=== PATIENT | male | born 1960 | race American Indian/Alaskan Native ===

== ENCOUNTER 2017-01-17 10:48 | Emergency (ER) | payer BC, OTHER ==
[2017-01-17 11:53] LABS: Basophils % (Auto) 0.5 % (0.0-1.8); Eosinophils % (Auto) 0.3 % (0.0-4.3); Hematocrit 32.4 % (35.5-45.6); Hemoglobin 10.3 gm/dl (11.8-15.2); Mean Corpuscular HGB Conc 32 % (32-34); Platelet Count 342 K/mm3 (140-440); Red Blood Count 4.66 M/mm3 (3.65-5.03); Red Cell Distribution Width 17.3 % (13.2-15.2); White Blood Count 7.9 K/mm3 (4.5-11.0)
[2017-01-17 12:01] LABS: Mean Corpuscular Hemoglobin 22 pg (28-32); Mean Corpuscular Volume 70 fl (84-94)
[2017-01-17 12:09] LABS: Anion Gap 17 mmol/L; BUN/Creatinine Ratio 11.11; Blood Urea Nitrogen 10 mg/dL (9-20); Calcium 9.4 mg/dL (8.4-10.2); Carbon Dioxide 24 mmol/L (22-30); Chloride 105.5 mmol/L (98-107); Glucose 85 mg/dL (75-100); Potassium 3.7 mmol/L (3.6-5.0); Sodium 143 mmol/L (137-145)
[2017-01-17 12:12] LABS: Creatine Kinase MB 3.3 ng/mL (0.0-4.0)
--- NOTE | 2017-01-17 13:31 | XRay Report ---
CHEST 2 VIEWS INDICATION: Chest pain. COMPARISON: None similar. FINDINGS: PA and lateral chest radiographs demonstrate stable cardiomediastinal silhouette. Lung markings slightly prominent centrally. No pleural effusions or CHF. Unremarkable bones. CONCLUSION: No significant interval change, as described. Thank you for the opportunity to participate in this patient's care.
[2017-01-17 15:26] VITALS: BP 127/84
[2017-01-17] MEDS ORDERED: NORCO 5/325 PO ONE (16:36)
[2017-01-17] MEDS ORDERED: PEPCID PO ONE (16:36)
--- NOTE | 2017-01-17 16:53 | Emergency Department Report ---
HPI - General Chief Complaint: Chest Pain Time Seen by Provider: 01/17/17 16:14 - HPI HPI: Patient is a 56-year-old male who presents for evaluation of chest pain. The patient reports chest pain on-and-off for the past 10 days, burning in quality, 8/10 in severity, exacerbated with eating and lying down, and improved with sitting forWARD. The patient denies fever, neck pain, parasthesias, dyspnea, cough, hemoptysis, palpitations, dizziness, syncope, unilateral leg swelling, calf muscle pain. Patient also denies cocaine or other stimulant use, history of DVT or PE, recent immobilization, or history of cancer. 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" - Surgical History Additional Surgical History: Finger surgery on right hand, Lung surgery for collapsed lung, Brain Surgery - Social History Smoking Status: Never Smoker Substance Use Type: None - Medications Home Medications: Home Medications Medication Instructions Recorded Confirmed Last Taken Type Tamsulosin [Flomax] 0.4 mg PO DAILY 03/26/15 01/17/17 01/04/16 History amLODIPine [Norvasc] 10 mg PO DAILY #30 tablet 11/26/15 01/17/17 01/04/16 Rx Cyclobenzaprine HCl [Flexeril 5 MG 5 mg PO Q8HR PRN #15 tab 01/17/17 Unknown Rx TAB] Famotidine [Pepcid] 20 mg PO BID #30 tablet 01/17/17 Unknown Rx Omeprazole Magnesium [PriLOSEC Otc] 20 mg PO QDAY #14 tablet. 01/17/17 Unknown Rx ED Review of Systems ROS: Stated complaint: REFERRAL HEART PAIN Other details as noted in HPI Constitutional: denies: fever ENT: denies: throat or neck pain Respiratory: denies: cough, shortness of breath Cardiovascular: reports chest pain Endocrine: denies unexplained weight loss or gain Gastrointestinal: denies: abdominal pain, nausea Genitourinary: denies: dysuria Musculoskeletal: denies: leg swelling Skin: denies: rash Neurological: denies: headache Hematological/Lymphatic: denies: easy bleeding or easy bruising Psych: denies sadness or hopelessness Physical Exam - Physical Exam Vital Signs: Vital Signs 01/17/17 01/17/17 11:24 15:25 Temperature 98.0 F Pulse Rate 93 H 76 Respiratory 20 16 Rate Blood Pressure 109/73 Blood Pressure 127/84 [Left] O2 Sat by Pulse 99 95 Oximetry Physical Exam: General: well-nourished, well-developed, no acute distress Head: Normocephalic, atraumatic Eyes: normal sclera ENT: Mucous membranes are pink and moist Neck: trachea midline, neck supple, No neck stiffness, no cervical adenopathy Respiratory: Breath sounds equal bilaterally, no wheezing, rales, or rhonchi Cardio: S1 and S2 present, no murmurs, rubs, gallops, capillary refill is brisk Abdomen: Normoactive bowel sounds, soft abdomen, no rigidity, no guarding or rebound tenderness Chest WALL/Back: No tenderness to palpation of the chest wall, no CVA tenderness with percussion Musc: No pitting edema Skin: No rash Neuro: no facial drooping, normal speech Psych: Normal affect ED Course Vital Signs 01/17/17 01/17/17 11:24 15:25 Temperature 98.0 F Pulse Rate 93 H 76 Respiratory 20 16 Rate Blood Pressure 109/73 Blood Pressure 127/84 [Left] O2 Sat by Pulse 99 95 Oximetry ED Medical Decision Making - Lab Data Result diagrams: 01/17/17 11:39 01/17/17 11:39 - Medical Decision Making The patient was seen and examined by myself. The patient is placed on a pattern painter and continuous pulse ox. On initial evaluation, the patient was found to be in no distress. EKG was negative for findings suggestive of acute cardiac infarct. The patient is given Pepcid and a tablet of Gilbert for his pain. Labs and imaging are obtained. Chest x-ray is negative for pneumothorax, focal consolidation, pulmonary vascular congestion, pleural effusion, or other obvious acute cardiopulmonary disease process. Lab results were non-concerning including levels of troponin, WBC, hemoglobin, hematocrit, electrolytes, renal function. The patient was reevaluated and reported that their symptoms were markedly improved. As the patient has a SHERMAN risk score less than 2, and a well 's score less than 2, the patient is at low risk of ACS or pulmonary emboli etiology of their symptoms. The patient is stable for discharge with outpatient follow-up. The patient is given follow-up and return instructions. The patient expressed understanding and agreed with the plan. The patient is discharged in stable condition. Critical care attestation.: If time is entered above; I have spent that time in minutes in the direct care of this critically ill patient, excluding procedure time. ED Disposition Clinical Impression: Acute chest pain Disposition: DISCHARGED TO HOME OR SELFCARE Is pt being admited?: No Does the pt Need Aspirin: No Condition: Stable Instructions: Chest Pain (ED) Prescriptions: Cyclobenzaprine HCl [Flexeril 5 MG TAB] 5 mg PO Q8HR PRN #15 tab PRN Reason: Pain Famotidine [Pepcid] 20 mg PO BID #30 tablet Omeprazole Magnesium [PriLOSEC Otc] 20 mg PO QDAY #14 tablet. Referrals: CLARISSA CHINCHILLA [Other] - 3-5 Days Time of Disposition: 16:37
== END 2017-01-17 17:23 | disposition home or self-care (01) ==
LOC: ED 10:48
DX: R07.9 Chest pain, unspecified (principal); I10 Essential (primary) hypertension; M19.90 Unspecified osteoarthritis, unspecified site; J44.9 Chronic obstructive pulmonary disease, unspecified; F41.9 Anxiety disorder, unspecified
CPT/HCPCS: 36415; 71020; 80048; 82550; 82553; 84484; 85025; 93005; 93010; 99285

== ENCOUNTER 2018-02-20 10:14 | Emergency (ER) | payer MEDICAID, OTHER ==
--- NOTE | 2018-02-20 12:24 | Emergency Department Report ---
HPI - General Chief Complaint: Upper Respiratory Infection Time Seen by Provider: 02/20/18 12:17 - HPI HPI: 57-year-old male presents to the emergency department with a complaint of sinus pressure, sinus drainage, sore throat. He also complains of a history of acid reflux that he says is unresponsive to his omeprazole. 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 He tried some Flonase [id number] without much relief. He denies any fever, headache, nausea, vomiting, chest pain or shortness of breath. He has a past medical history of COPD, hypertension. He denies any recent travel or sick contacts at home. 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 10/21/17 Unknown Rx amLODIPine [Norvasc] 10 mg PO DAILY tablet 10/21/17 Unknown Rx Azithromycin [Zithromax Z-NIXON] 250 mg PO DAILY #6 tab 02/20/18 Unknown Rx ED Review of Systems ROS: Stated complaint: COLD Other details as noted in HPI Comment: All other systems reviewed and negative Constitutional: denies: chills, fever Eyes: denies: eye pain, eye discharge, vision change ENT: throat pain, congestion. denies: ear pain Respiratory: cough. denies: shortness of breath Cardiovascular: denies: chest pain, palpitations Gastrointestinal: denies: abdominal pain, nausea, diarrhea Genitourinary: denies: urgency, dysuria Musculoskeletal: denies: back pain, joint swelling, arthralgia Skin: denies: rash, lesions Neurological: denies: headache, weakness, paresthesias Physical Exam - Physical Exam Vital Signs: Vital Signs 02/20/18 10:25 Temperature 98.4 F Pulse Rate 106 H Respiratory 18 Rate Blood Pressure 127/82 O2 Sat by Pulse 97 Oximetry Physical Exam: GENERAL: The patient is well-developed well-nourished. HENT: Normocephalic. Atraumatic. Patient has moist mucous membranes. Posterior pharynx has a cobblestoning appearance consistent with some postnasal drip. No tonsillar hypertrophy, erythema or exudates. No drooling or trismus. Bilateral boggy nasal mucosa with some nasal congestion apparent. EYES: Extraocular motions are intact. Pupils equal reactive to light bilaterally. NECK: Supple. Trachea is midline. CHEST/LUNGS: Clear to auscultation. There is no respiratory distress noted. HEART/CARDIOVASCULAR: Regular. There is no tachycardia. There is no murmur. ABDOMEN: Abdomen is soft, nontender. Patient has normal bowel sounds. There is no abdominal distention. SKIN: Skin is warm and dry. NEURO: The patient is awake, alert, and oriented. The patient is cooperative. The patient has no focal neurologic deficits. The patient has normal speech. MUSCULOSKELETAL: There is no tenderness or deformity. There is no limitation range of motion. There is no evidence of acute injury. ED Course Vital Signs 02/20/18 10:25 Temperature 98.4 F Pulse Rate 106 H Respiratory 18 Rate Blood Pressure 127/82 O2 Sat by Pulse 97 Oximetry ED Medical Decision Making - Medical Decision Making The patient has already tried some [id number] medications including some Flonase. He has complaints of some sinus pressure and drainage, sore throat, cough. Vital signs stable including being afebrile. He has been encouraged to stay on the Flonase but I have added a Z-Nixon. We also discussed dietary changes to help with his GERD. He'll need to follow up with his mount loader as well. He will return to the ER with any worsening of his symptoms or any acute distress. - Differential Diagnosis sinusitis, viral URI, GERD, gastritis Critical Care Time: No Critical care attestation.: If time is entered above; I have spent that time in minutes in the direct care of this critically ill patient, excluding procedure time. ED Disposition Clinical Impression: History of gastroesophageal reflux (GERD) Sinusitis Qualifiers: Sinusitis location: unspecified location Chronicity: unspecified Qualified Code (s): J32.9 - Chronic sinusitis, unspecified Disposition: TO HOME OR SELFCARE Is pt being admited?: No Condition: Stable Instructions: Sinusitis (ED) Additional Instructions: Please follow up with a primary care physician in the next 2 days. Return to the emergency Department with any worsening of her symptoms or any acute distress. Prescriptions: Azithromycin [Zithromax Z-NIXON] 250 mg PO DAILY #6 tab Referrals: PRIMARY CARE, [Primary Care Provider] - 3-5 Days MYESHA LANG MD [Staff Physician] - 3-5 Days [facility] [Outside] - 3-5 Days Time of Disposition: 12:24
[2018-02-20 12:35] VITALS: BP 114/74
== END 2018-02-20 12:34 | disposition home or self-care (01) ==
LOC: ED 10:14
DX: J32.9 Chronic sinusitis, unspecified (principal); K21.9 Gastro-esophageal reflux disease without esophagitis; I10 Essential (primary) hypertension; M19.90 Unspecified osteoarthritis, unspecified site; J44.9 Chronic obstructive pulmonary disease, unspecified; Z87.891 Personal history of nicotine dependence
CPT/HCPCS: 99282

== ENCOUNTER 2018-03-24 09:07 | Outpatient (CLI) | payer MEDICAID ==
--- NOTE | 2018-03-24 10:47 | Fluoroscopy Report ---
UPPER GI AIR CONTRAST: History: Gastroesophageal reflux disease. FINDINGS: 16 fluoroscopic images were captured during this exam. The patient ingested barium without difficulty. The esophageal contour is normal. There are no ulcerations or filling defects seen in the esophagus. There is normal esophageal motility. There is no hiatal hernia or reflux. The gastric contour and position appear normal. There are no ulcerations or filling defects in the stomach. The duodenal bulb and duodenal sweep appear normal. IMPRESSION: Negative double contrast upper GI examination.
== END 2018-03-24 09:08 | disposition home or self-care (01) ==
LOC: FLUORO 09:07
DX: K21.9 Gastro-esophageal reflux disease without esophagitis (principal); I10 Essential (primary) hypertension; J44.9 Chronic obstructive pulmonary disease, unspecified; M19.90 Unspecified osteoarthritis, unspecified site; F41.9 Anxiety disorder, unspecified; Z91.81 History of falling; Z87.891 Personal history of nicotine dependence
CPT/HCPCS: 74247

== ENCOUNTER 2018-04-08 07:29 | Outpatient (CLI) | payer MEDICAID ==
--- NOTE | 2018-04-08 10:25 | Nuclear Medicine Report ---
Gastric emptying scan: GERD Following ingestion of technetium 99m tagged sulfur colloid in oatmeal this patient demonstrated a one half gastric emptying time of 25 minutes which is well within lower normal limits of 90 minutes. Impression: Normal exam.
== END 2018-04-08 07:30 | disposition home or self-care (01) ==
LOC: NM 07:29
DX: K21.9 Gastro-esophageal reflux disease without esophagitis (principal); I10 Essential (primary) hypertension; J44.9 Chronic obstructive pulmonary disease, unspecified; M19.90 Unspecified osteoarthritis, unspecified site; F41.9 Anxiety disorder, unspecified; Z91.81 History of falling; Z87.891 Personal history of nicotine dependence
CPT/HCPCS: 78264; A9541

== ENCOUNTER 2019-05-18 06:43 | Outpatient (CLI) | payer MEDICAID ==
[2019-05-18 07:19] LABS: Hematocrit 31.4 % (35.5-45.6); Mean Corpuscular HGB Conc 32 % (32-34); Platelet Count 254 K/mm3 (140-440); Red Blood Count 4.49 M/mm3 (3.65-5.03); Red Cell Distribution Width 17.7 % (13.2-15.2)
[2019-05-18 07:28] LABS: Mean Corpuscular Volume 70 fl (84-94)
[2019-05-18 07:41] LABS: Alanine Aminotransferase 11 units/L (7-56); Albumin 3.9 g/dL (3.9-5); BUN/Creatinine Ratio 11; Blood Urea Nitrogen 10 mg/dL (9-20); Calcium 9.3 mg/dL (8.4-10.2); Chol/HDL Ratio 1.83 %; HDL Cholesterol 54 mg/dL (40-59); Hemolysis Index 0; LDL Cholesterol,Direct 46 mg/dL (50-130)
--- NOTE | 2019-05-18 08:00 | XRay Report ---
CHEST 2 VIEWS INDICATION: COPD. COMPARISON: 10/19/2017 report FINDINGS: Support devices: None. Heart: Borderline heart size Lungs/pleura: The lungs are mildly hyperinflated. No acute air space or interstitial disease. No pne umothorax. Additional findings: None. IMPRESSION: Mild hyperinflation. Borderline cardiomegaly. Signer Name: Gopal Mari Jr, MD Signed: 05/18/2019 7:56 AM Workstation Name: [id number]
--- NOTE | 2019-05-18 08:33 | Cat Scan Report ---
CT CHEST WITH CONTRAST INDICATION / CLINICAL INFORMATION: COPD, shortness of breath. TECHNIQUE: Axial CT images were obtained through the chest after 100 cc of Omnipaque 300 IV contrast. Sagittal a nd coronal reformatted images. All CT scans at this location are performed using CT dose reduction fo r ALARA by means of automated exposure control. COMPARISON: Chest x-ray dated 05/18/2019 FINDINGS: HEART: Mild cardiomegaly is present. A small to medium pericardial effusion is identified measuring u p to 1.3 cm in thickness along the left cardiac border. No pericardial calcifications or nodularity i s identified. THORACIC AORTA: No significant abnormality. MEDIASTINUM and JEFF: Small calcified right hilar lymph nodes are noted. No pathologic adenopathy LUNGS: Mild centrilobular emphysematous changes are identified. Minor linear scarring and calcified g ranulomas near the right apex. No evidence for suspicious nodule, infiltrate or interstitial lung dis ease PLEURA: No significant pleural effusion. No pneumothorax. SKELETAL SYSTEM: No significant abnormality. UPPER ABDOMEN: No significant abnormality. ADDITIONAL FINDINGS: None. IMPRESSION: Mild emphysematous changes. Mild cardiomegaly. Small to medium pericardial effusion. Chronic granulomatous disease Signer Name: Gopal Mari Jr, MD Signed: 05/18/2019 8:28 AM Workstation Name: [id number]
== END 2019-05-18 06:44 | disposition home or self-care (01) ==
LOC: CT 06:43
PROVIDERS: ATTEND Internal Medicine
DX: J43.9 Emphysema, unspecified (principal); K21.9 Gastro-esophageal reflux disease without esophagitis; L92.9 Granulomatous disorder of the skin and subcutaneous tissue, unspecified; I11.9 Hypertensive heart disease without heart failure; J30.89 Other allergic rhinitis; Z87.891 Personal history of nicotine dependence
CPT/HCPCS: 71046; 71260; 80053; 80061; 82785; 82803; 84436; 84443; 85027; 86038; 86618; Q9967

== ENCOUNTER 2019-05-25 09:43 | Outpatient (CLI) | payer MEDICAID ==
--- NOTE | 2019-05-25 11:47 | Magnetic Resonance Report ---
MRI CERVICAL SPINE WITHOUT CONTRAST INDICATION / CLINICAL INFORMATION: Cervicalgia. TECHNIQUE: Multisequence, multiplanar images of the cervical spine were obtained. COMPARISON: None available. FINDINGS: CRANIOCERVICAL JUNCTION:No significant abnormality. ALIGNMENT: No significant abnormality. VERTEBRAE:Normal marrow signal and vertebral body height for age. VISUALIZED SPINAL CORD: No cord signal abnormality. [id number] ANALYSIS: C2-3: No significant disc abnormality, spinal canal stenosis, or neural foraminal stenosis. Mild bila teral facet DJD. C3-4: No significant disc abnormality, spinal canal stenosis, or neural foraminal stenosis. C4-5: Trace broad-based disc protrusion causing mild canal stenosis without cord impingement. Mild le ft neural foraminal narrowing secondary to uncovertebral DJD. C5-6: Trace broad-based disc protrusion causing mild canal stenosis without any cord impingement. Mil d bilateral neural foraminal narrowing secondary to uncovertebral DJD. C6-7: Mild left neural foraminal narrowing secondary to uncovertebral DJD. C7-T1: Moderate bilateral facet DJD with resultant mild left neural foraminal narrowing. PARASPINAL SOFT TISSUES: No significant abnormality. ADDITIONAL FINDINGS: None. IMPRESSION: 1. Small disc protrusions at C4-5 and C5-6 causing mild central canal stenosis without cord impingeme nt or cord signal abnormality. 2. Mild multilevel neural foraminal narrowing as described secondary to a combination of uncovertebra l and facet DJD. Signer Name: Ed Norton MD Signed: 05/25/2019 11:43 AM Workstation Name: [id number]
== END 2019-05-25 09:44 | disposition home or self-care (01) ==
LOC: MRI 09:43
PROVIDERS: ATTEND Physical Medicine & Rehabilitation
DX: M50.221 Other cervical disc displacement at C4-C5 level (principal); M48.02 Spinal stenosis, cervical region; M50.30 Other cervical disc degeneration, unspecified cervical region; M19.011 Primary osteoarthritis, right shoulder; I10 Essential (primary) hypertension; J44.9 Chronic obstructive pulmonary disease, unspecified; K21.9 Gastro-esophageal reflux disease without esophagitis
CPT/HCPCS: 72141

== ENCOUNTER 2019-09-05 21:34 | Inpatient (IN) | payer MEDICAID ==
--- NOTE | 2019-09-05 22:30 | Event Note ---
ED Screening Note ED Screening Note: states he has associated sore throat states he is not sure if he is having "mucus or acid" +productive cough no fever +congestion PMHx HTN, COPD no allergies to meds former smoker quit 10 years ago This initial assessment/diagnostic orders/clinical plan/treatment(s) is/are subject to change based on patients health status, clinical progression and re- assessment by fellow clinical providers in the ED. Further treatment and workup at subsequent clinical providers discretion. Patient/guardian urged not to elope from the ED as their condition may be serious if not clinically assessed and managed. Initial orders include: CXR
--- NOTE | 2019-09-05 23:12 | XRay Report ---
CHEST 2 VIEWS INDICATION / CLINICAL INFORMATION: Productive cough. COMPARISON: 2 views of the chest from 05/18/2019. FINDINGS: SUPPORT DEVICES: None. HEART / MEDIASTINUM: No significant abnormality. LUNGS / PLEURA: Biapical scarring is again noted. The lungs are otherwise clear. No significant pleur al effusion. No pneumothorax. ADDITIONAL FINDINGS: No significant additional findings. IMPRESSION: 1. No acute abnormality of the chest. Signer Name: Mateus Castro MD Signed: 09/05/2019 11:08 PM Workstation Name: [id number]
--- NOTE | 2019-09-05 23:31 | Emergency Department Report ---
ED General Adult HPI - General Chief complaint: Sore Throat Stated complaint: THROAT PAIN Time Seen by Provider: 09/05/19 22:28 Source: patient Mode of arrival: Ambulatory Limitations: No Limitations - History of Present Illness Initial comments: Patient is a 59-year-old male who presents emergency room with complaints of cough and shortness of breath 4 days. Patient states that he had chronic throat pain since 2016 when he had a surgery at [place]. Patient states his throat pain is at a 3-5 out of 10. Patient states he is actually not here for t hroat pain but actually wants to be seen for his cough and shortness of breath. Patient states his cough is dry and nonproductive. Patient states his symptoms are worsening. Patient denies fever and chills. Patient denies diaphoresis. Patient denies dizziness. Patient denies syncope. Patient denies headache. Patient denies chest pain. -: Sudden Severity scale (0 -10): 5 Quality: burning Consistency: constant Improves with: rest Worsens with: other (coughing) Associated Symptoms: cough, shortness of breath. denies: confusion, chest pain, diaphoresis, fever/chills, headaches, loss of appetite, malaise, nausea/v omiting, rash, seizure, syncope, weakness - Related Data Home Medications Medication Instructions Recorded Confirmed Last Taken Tamsulosin [Flomax] 0.4 mg PO DAILY 03/26/15 09/06/19 01/04/16 Anagrelide HCl [Anagrelide] 1 mg PO BID 10/20/17 09/06/19 Unknown Ascorbic Acid [Vitamin C] 1,000 mg PO DAILY 10/20/17 09/06/19 Unknown Finasteride [Proscar] 5 mg PO DAILY 08/05/18 09/06/19 Unknown Omeprazole 40 mg PO BID 08/05/18 09/06/19 Unknown Previous Rx's Medication Instructions Recorded Last Taken Type amLODIPine 10 mg PO DAILY tablet 10/21/17 Unknown Rx Allergies Allergy/AdvReac Type Severity Reaction Status Date / Time No Known Allergies Allergy Verified 03/26/15 09:45 ED Review of Systems ROS: Stated complaint: THROAT PAIN Other details as noted in HPI Constitutional: denies: chills, fever Eyes: denies: eye pain, eye discharge, vision change ENT: denies: ear pain, throat pain Respiratory: cough, shortness of breath. denies: wheezing Cardiovascular: denies: chest pain, palpitations Endocrine: no symptoms reported Gastrointestinal: melena. denies: abdominal pain, nausea, diarrhea Genitourinary: denies: urgency, dysuria Musculoskeletal: denies: back pain, joint swelling, arthralgia Skin: denies: rash, lesions Neurological: denies: headache, weakness, paresthesias Psychiatric: denies: anxiety, depression Hematological/Lymphatic: denies: easy bleeding, easy bruising ED Past Medical Hx - Past Medical History Previous Medical History?: Yes Hx Hypertension: Yes Hx Congestive Heart Failure: No Hx Diabetes: No Hx GERD: Yes Hx Arthritis: Yes (HANDS AND ARM) Hx Psychiatric Treatment: Yes (Anxiety) Hx Asthma: No Hx COPD: Yes (controlled, no inhaler use ) Additional medical history: "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" - Surgical History Past Surgical History?: Yes Additional Surgical History: Finger surgery on right hand, Lung surgery for c ollapsed lung, Brain Surgery - Family History Family history: no significant - Social History Smoking Status: Former Smoker Substance Use Type: None - Medications Home Medications: Home Medications Medication Instructions Recorded Confirmed Last Taken Type Tamsulosin [Flomax] 0.4 mg PO DAILY 03/26/15 09/06/19 01/04/16 History Anagrelide HCl [Anagrelide] 1 mg PO BID 10/20/17 09/06/19 Unknown History Ascorbic Acid [Vitamin C] 1,000 mg PO DAILY 10/20/17 09/06/19 Unknown History amLODIPine 10 mg PO DAILY tablet 10/21/17 09/06/19 Unknown Rx Finasteride [Proscar] 5 mg PO DAILY 08/05/18 09/06/19 Unknown History Omeprazole 40 mg PO BID 08/05/18 09/06/19 Unknown History ED Physical Exam - General Limitations: No Limitations General appearance: alert, in no apparent distress - Head Head exam: Present: atraumatic, normocephalic - Eye Eye exam: Present: normal appearance - ENT ENT exam: Present: mucous membranes moist - Neck Neck exam: Present: normal inspection - Respiratory Respiratory exam: Present: normal lung sounds bilaterally. Absent: respiratory distress, wheezes, rales - Cardiovascular Cardiovascular Exam: Present: regular rate, normal rhythm. Absent: systolic murmur, diastolic murmur, rubs, gallop - GI/Abdominal GI/Abdominal exam: Present: soft, normal bowel sounds. Absent: distended, tenderness, guarding - Rectal Rectal exam: Present: normal inspection, normal rectal tone, heme (+) stool - Extremities Exam Extremities exam: Present: normal inspection, full ROM. Absent: tenderness - Back Exam Back exam: Present: normal inspection - Neurological Exam Neurological exam: Present: alert, oriented X3 - Psychiatric Psychiatric exam: Present: normal affect, normal mood - Skin Skin exam: Present: warm, dry, intact, normal color. Absent: rash ED Course Vital Signs 09/05/19 09/05/19 09/06/19 21:40 22:35 01:00 Temperature 98.1 F 98.3 F Pulse Rate 129 H 99 H 88 Respiratory 18 20 Rate Blood Pressure 110/74 Blood Pressure 134/87 [Right] O2 Sat by Pulse 98 98 Oximetry 09/06/19 02:20 Temperature Pulse Rate Respiratory 20 Rate Blood Pressure Blood Pressure [Right] O2 Sat by Pulse 98 Oximetry - Reevaluation(s) Reevaluation #1: Discussed all results with patient. I discussed plan of care outpatient. Patient agrees with plan of care and admission. Patient will be admitted to the hospitalist service. 09/06/19 01:46 - Consultations Consultation #1: gi Paged 09/06/19 01:[address] GI[address] Dr. Mohamud recommends admission and IV Protonix, and by mouth. 09/06/19 01:45 Consultation #2: Hospitalist consultation for admission. Hospitalist to admit patient. 09/06/19 02:01 ED Medical Decision Making - Lab Data Result diagrams: 09/06/19 00:00 09/06/19 00:00 - EKG Data -: EKG Interpreted by Me EKG shows normal: sinus rhythm, axis, intervals, QRS complexes, ST-T waves Rate: normal - Radiology Data Radiology results: report reviewed, image reviewed interpreted by me: no Acute findings on chest x-ray. CTA negative for PE. Chest x-ray shows no acute findings. - Medical Decision Making Patient is a 59-year-old male who presents emergency room with complaints of shortness of breath, cough and chronic throat pain. Patient also complained of melena after found to be anemic. The patient's had a rectal examination showed guaiac positive. Patient admitted to the hospitalist service. I discussed case with GI and they recommended admission and nothing by mouth for possible scope in the morning. Patient given IV Protonix. Patient typed and crossed. Patient's clinical findings are consistent with cough, shortness of breath, acid reflux and GERD and possible GI bleed. - Differential Diagnosis GI bleed, shortness of breath, GERD, esophagitis, PUD, anemia Critical Care Time: Yes Critical care time in (mins) excluding proc time.: 35 Critical care attestation.: If time is entered above; I have spent that time in minutes in the direct care of this critically ill patient, excluding procedure time. Critical Care Time: 35 minutes ED Disposition Clinical Impression: Cough, SOB (shortness of breath), Cardiomegaly, Throat pain GERD (gastroesophageal reflux disease) Qualifiers: Esophagitis presence: with esophagitis Qualified Code(s): K21.0 - Gastro- esophageal reflux disease with esophagitis GI bleed Qualifiers: GI bleed type/associated pathology: melena Qualified Code(s): K92.1 - Melena Anemia Qualifiers: Anemia type: unspecified type Qualified Code(s): D64.9 - Anemia, unspecified Disposition: DC-09 OP ADMIT IP TO THIS HOSP Is pt being admited?: Yes Does the pt Need Aspirin: No Condition: Critical Time of Disposition: 01:49
[2019-09-06 00:05] LABS: Basophils # (Auto) 0.1 K/mm3 (0.0-0.1); Basophils % (Auto) 0.7 % (0.0-1.8); Eosinophils % (Auto) 0.2 % (0.0-4.3); Hematocrit 28.1 % (35.5-45.6); Hemoglobin 8.8 gm/dl (11.8-15.2); Lymphocytes # (Auto) 2.4 K/mm3 (1.2-5.4); Mean Corpuscular HGB Conc 31 % (32-34); Mean Corpuscular Volume 71 fl (84-94); Monocytes # (Auto) 0.9 K/mm3 (0.0-0.8); Monocytes % (Auto) 10.6 % (0.0-7.3); Platelet Count 239 K/mm3 (140-440); Red Blood Count 3.96 M/mm3 (3.65-5.03); Red Cell Distribution Width 19.1 % (13.2-15.2)
[2019-09-06 00:21] LABS: Alanine Aminotransferase 13 units/L (7-56); Albumin 3.9 g/dL (3.9-5); BUN/Creatinine Ratio 12; Blood Urea Nitrogen 12 mg/dL (9-20); Hemolysis Index 27
--- NOTE | 2019-09-06 00:33 | Cat Scan Report ---
CTA CHEST WITH IV CONTRAST INDICATION: Shortness of breath. Cough. TECHNIQUE: Axial CT images were obtained through the chest after injection of 100 MLO Omnipaque 350 IV contrast. 3 plane MIP reconstructions were produced. All CT scans at this location are performed using CT dose reduction for ALARA by means of automated exposure control. COMPARISON: 2 views of the chest from the same day. CT chest with contrast from 05/18/2019. FINDINGS: PULMONARY ARTERIES: There is good opacification of the pulmonary arteries without distinct thromboemb satish. AORTA AND ARTERIES: Mild coronary atherosclerosis is seen without an additional significant abnormali ty. MEDIASTINUM: The heart is mildly enlarged with a moderate pericardial effusion. No additional signifi cant abnormality. LUNGS: Mild emphysema is again noted with similar right apical scarring. No additional significant pu lmonary abnormality, pneumothorax or pleural effusion. ADDITIONAL FINDINGS: None. UPPER ABDOMEN: No acute findings. BONES: No significant osseous abnormality. IMPRESSION: 1. No CT evidence for pulmonary embolism. 2. Mild cardiomegaly with a moderate pericardial effusion. Signer Name: Mateus Castro MD Signed: 09/06/2019 12:29 AM Workstation Name: [id number]
[2019-09-06] MEDS ORDERED: PANTOPRAZOLE 40 MG INJ IV ONE (01:47)
[2019-09-06 02:46] LABS: INR 1.22 (0.87-1.13)
[2019-09-06 02:47] LABS: Partial Thromboplastin Time 32.6 Sec. (24.2-36.6)
--- NOTE | 2019-09-06 03:04 | History and Physical Report ---
History of Present Illness Date of examination: 09/06/19 Date of admission: 09/06/19 02:15 History of present illness: 59-year-old man with a history of hypertension, GERD, brain tumor comes ivy ency room with complaints of dry cough and clearing of his throat. He states that he has had 3 surgeries for GERD, PPIs does not help with his GERD. Last surgery was this summer. In the emergency room he was found to be anemic, admits to black stool, patient cannot recall the last episode of melena. Denies NSAID use. patient is being admitted for guaiac positive stool, anemia Review Of Systems: Constitutional: no weight loss, fever, chills Ears, eyes, nose, mouth and throat: no nasal congestion, no nasal discharge, no sinus pressure, blurry vision, diplopia Neck: No neck pain or rigidity. Cardiovascular: No palpitations Respiratory: No shortness of breath Gastrointestinal: No hematochezia, abdominal pain Genitourinary : no dysuria, frequency , hematuria Musculoskeletal: no muscle ache , joint pain Integumentary: no rash, no pruritis Neurological: no parathesias, focal weakness Endocrine: no cold or heat intolerance, no polyuria or polydipsia Hematologic/Lymphatic: no easy bruising, no easy bleeding, no gland swelling Allergic/Immunologic: no urticaria, no angioedema. PAST MEDICAL HISTORY:hypertension, GERD, brain tumor PAST SURGICAL HISTORY: 3 surgeries for GERD, resection of brain tumor FAMILY HISTORY:hypertension SOCIAL HISTORY: Denies drugs, alcohol, tobacco Medications and Allergies Allergies Allergy/AdvReac Type Severity Reaction Status Date / Time No Known Allergies Allergy Verified 03/26/15 09:45 Home Medications Medication Instructions Recorded Confirmed Last Taken Type Tamsulosin [Flomax] 0.4 mg PO DAILY 03/26/15 09/06/19 01/04/16 History Anagrelide HCl [Anagrelide] 1 mg PO BID 10/20/17 09/06/19 Unknown History Ascorbic Acid [Vitamin C] 1,000 mg PO DAILY 10/20/17 09/06/19 Unknown History amLODIPine 10 mg PO DAILY tablet 10/21/17 09/06/19 Unknown Rx Finasteride [Proscar] 5 mg PO DAILY 08/05/18 09/06/19 Unknown History Omeprazole 40 mg PO BID 08/05/18 09/06/19 Unknown History Exam - Physical Exam Narrative exam: General Apperance: The patient sitting in bed no acute distress HEENT: Normocephalic, atraumatic. Pupils equally round and reactive to light, extraocular movement intact, and no sclericterus or JVD or thyromegaly or nodule. Neck supple, no carotid bruit, mucous membranes dry, no exudate or erythema Heart: S1-S2, regular is rhythm Lungs: Clear to auscultation bilaterally, breathing comfortable Abdomen: Positive bowel sounds, soft, nontender, nondistended, no organomegaly Extremities: No edema cyanosis clubbing Skin: no rash, nodule, warm and dry Neuro:CN 2 -12 intact, motor/sensory intact, speech is fluent Rectat: heme positive - Constitutional Vitals: Temp Pulse Resp BP Pulse Ox 98.3 F 88 20 134/87 98 09/06/19 01:00 09/06/19 01:00 09/06/19 02:20 09/06/19 01:00 09/06/19 02:20 Results - Labs CBC & Chem 7: 09/06/19 00:00 09/06/19 00:00 Labs: Abnormal lab results 09/06/19 09/06/19 09/06/19 Range/Units 00:00 00:00 02:13 Hgb 8.8 L (11.8-15.2) gm/dl Hct 28.1 L (35.5-45.6) % MCV 71 L (84-94) fl MCH 22 L (28-32) pg MCHC 31 L (32-34) % RDW 19.1 H (13.2-15.2) % [place] % (Auto) 10.6 H (0.0-7.3) % [place] # 0.9 H (0.0-0.8) K/mm3 PT 15.3 H (12.2-14.9) Sec. INR 1.22 H (0.87-1.13) Chloride 109.2 H (98-107) mmol/L Carbon Dioxide 21 L (22-30) mmol/L Total Protein 9.2 H (6.3-8.2) g/dL - Imaging and Cardiology Chest x-ray: report reviewed CT scan - chest: report reviewed Assessment and Plan Assessment GI bleed/ Severe GERD Start Protonix, IV fluid, check serial hemoglobin, consult GI Pericardial effusion Asymptomatic, check echo, consult cardiology Hypertension Restart outpatient medications DVT prophylaxis
[2019-09-06] MEDS ORDERED: ACETAMINOPHEN 325 MG TAB PO PRN (03:21)
[2019-09-06] MEDS ORDERED: ONDANSETRON 4 MG/2 ML INJ IV PRN (03:21)
[2019-09-06] MEDS: SODIUM CHLORIDE 0.45% 1000 ML 1,000 ML IV SCH ×2 (04:38→16:16)
[2019-09-06] MEDS: MORPHINE 2 MG/1 ML INJ IV PRN ×4 (04:50→21:31)
[2019-09-06 09:15] LABS: Hemoglobin 8.8 gm/dl (11.8-15.2)
[2019-09-06] MEDS: ASCORBIC ACID 500 MG TAB PO SCH (09:28)
[2019-09-06] MEDS: FINASTERIDE 5 MG TAB PO SCH (09:29)
[2019-09-06] MEDS: amLODIPine 10 MG TAB PO SCH (09:29)
[2019-09-06] MEDS: PANTOPRAZOLE 40 MG INJ IV SCH ×2 (09:29→21:31)
[2019-09-06] MEDS: TAMSULOSIN 0.4 MG CAP PO SCH ×2 (09:29→09:40)
[2019-09-06] MEDS ORDERED: NON-FORMULARY EACH (Ascorbic Acid [Vitamin C] 1,000 MG) PO SCH (10:00)
--- NOTE | 2019-09-06 10:50 | Gastroenterology Consultation ---
History of Present Illness - Reason for Consult Consult date: 09/06/19 anemia, melena Requesting physician: JIN RICE - History of Present Illness This is a 59 yo male with pmh of HTN, GERD s/p fundoplication x 2 at [place] (last one this summer), brain tumor presented to the ED yesterday for worsening cough, sinus drainage, and throat pain. Patient was noted to be anemic and reported having dark stools. GI consulted for anemia work up. Patient reports having had chronic cough, sinus drainage. He underwent reflux surgery with Dr. Alex Puckett at [facility] this summer but he continued to have similar symptoms. He is planned to see ENT and pulmonary clinic for further work up. he denies any abdominal pain, nausea/vomiting. He reports having anemia with iron deficiency and has been on iron. Reports having intermittent black stools with last one a few weeks to month ago. Last BM was brown without any red blood. medication list reviewed. Past History Past Medical History: GERD Past Surgical History: Other (GERD surgery) Social history: lives with family Family history: hypertension Medications and Allergies Allergies Allergy/AdvReac Type Severity Reaction Status Date / Time No Known Allergies Allergy Verified 03/26/15 09:45 Home Medications Medication Instructions Recorded Confirmed Last Taken Type Tamsulosin [Flomax] 0.4 mg PO DAILY 03/26/15 09/06/19 01/04/16 History Anagrelide HCl [Anagrelide] 1 mg PO BID 10/20/17 09/06/19 Unknown History Ascorbic Acid [Vitamin C] 1,000 mg PO DAILY 10/20/17 09/06/19 Unknown History amLODIPine 10 mg PO DAILY tablet 10/21/17 09/06/19 Unknown Rx Finasteride [Proscar] 5 mg PO DAILY 08/05/18 09/06/19 Unknown History Omeprazole 40 mg PO BID 08/05/18 09/06/19 Unknown History Active Meds: Active Medications Acetaminophen (Tylenol) 650 mg PO Q4H PRN PRN Reason: Pain MILD(1-3)/Fever >100.5/JC Amlodipine Besylate (Amlodipine) 10 mg PO DAILY [facility] Last Admin: 09/06/19 09:29 Dose: 10 mg Documented by: Ascorbic Acid (Vitamin C) 1,000 mg PO QDAY [facility] Last Admin: 09/06/19 09:28 Dose: 1,000 mg Documented by: Finasteride (Proscar) 5 mg PO DAILY [facility] Last Admin: 09/06/19 09:29 Dose: 5 mg Documented by: Sodium Chloride (Nacl 0.45% 1000 Ml) 1,000 mls @ 75 mls/hr IV DIRECT [facility] Last Admin: 09/06/19 04:38 Dose: 75 mls/hr Documented by: Morphine Sulfate (Morphine) 2 mg IV Q4H PRN PRN Reason: Pain, Moderate (4-6) Last Admin: 09/06/19 09:29 Dose: 2 mg Documented by: Ondansetron HCl (Zofran) 4 mg IV Q8H PRN PRN Reason: Nausea And Vomiting Pantoprazole Sodium (Protonix) 40 mg IV BID [facility] Last Admin: 09/06/19 09:29 Dose: 40 mg Documented by: Sodium Chloride (Sodium Chloride Flush Syringe 10 Ml) 10 ml IV BID [facility] Last Admin: 09/06/19 09:41 Dose: 10 ml Documented by: Sodium Chloride (Sodium Chloride Flush Syringe 10 Ml) 10 ml IV PRN PRN PRN Reason: LINE FLUSH Last Admin: 09/06/19 04:44 Dose: 10 ml Documented by: Tamsulosin HCl (Flomax) 0.4 mg PO DAILY [facility] Last Admin: 09/06/19 09:40 Dose: Not Given Documented by: Review of Systems - Review of Systems All systems: negative Constitutional: no weight loss, no weight gain Ears, Nose, Throat: hoarseness Cardiovascular: no chest pain Respiratory: cough, no shortness of breath Gastrointestinal: melena, no abdominal pain, no nausea, no vomiting, no diarrhea, no constipation Exam - Constitutional Vital Signs: Temp Pulse Resp BP Pulse Ox 98.5 F 73 20 122/84 98 09/06/19 04:49 09/06/19 04:49 09/06/19 04:49 09/06/19 04:49 09/06/19 08:34 General appearance: no acute distress - EENT Eyes: EOM intact ENT: hearing intact - Neck Neck: supple - Respiratory Respiratory effort: normal - Cardiovascular Rhythm: regular Heart Sounds: Present: S1 & S2 - Gastrointestinal General gastrointestinal: Present: soft, non-tender, non-distended, normal bowel sounds - Integumentary Integumentary: Present: clear, warm - Neurologic Neurological: alert and oriented x3 - Labs CBC & Chem 7: 09/06/19 14:32 09/06/19 00:00 Lab Results: Laboratory Results - last 24 hr 09/06/19 09/06/19 09/06/19 00:00 00:00 00:00 WBC 8.4 RBC 3.96 Hgb 8.8 L Hct 28.1 L MCV 71 L MCH 22 L MCHC 31 L RDW 19.1 H Plt Count 239 Lymph % (Auto) 29.0 [place] % (Auto) 10.6 H Eos % (Auto) 0.2 Baso % (Auto) 0.7 Lymph # 2.4 [place] # 0.9 H Eos # 0.0 Baso # 0.1 Seg Neutrophils % 59.5 Seg Neutrophils # 5.0 PT INR APTT Sodium 144 Potassium 3.9 Chloride 109.2 H Carbon Dioxide 21 L Anion Gap 18 BUN 12 Creatinine 1.0 Estimated GFR > 60 BUN/Creatinine Ratio 12 Glucose 98 Calcium 9.0 Total Bilirubin 0.40 AST 17 ALT 13 Alkaline Phosphatase 106 NT-Pro-B Natriuret Pep 553.3 Total Protein 9.2 H Albumin 3.9 Albumin/Globulin Ratio 0.7 Blood Type Antibody Screen 09/06/19 09/06/19 09/06/19 02:13 02:17 08:13 WBC RBC Hgb 8.8 L Hct 27.0 L MCV MCH MCHC RDW Plt Count Lymph % (Auto) [place] % (Auto) Eos % (Auto) Baso % (Auto) Lymph # [place] # Eos # Baso # Seg Neutrophils % Seg Neutrophils # PT 15.3 H INR 1.22 H APTT 32.6 Sodium Potassium Chloride Carbon Dioxide Anion Gap BUN Creatinine Estimated GFR BUN/Creatinine Ratio Glucose Calcium Total Bilirubin AST ALT Alkaline Phosphatase NT-Pro-B Natriuret Pep Total Protein Albumin Albumin/Globulin Ratio Blood Type B POSITIVE Antibody Screen Negative Assessment and Plan # GERD # Melena # Anemia - s/p reflux surgery at [facility] x 2 with last one this summer with Dr. Puckett. - continues to have cough, sore throat, and sinus drainage, planned for outpatient work up with ENT and pulmonary. - no active signs of GI bleeding at this time. - anemia may be chronic. Rec - will plan for EGD tomorrow. - keep NPO MN - continue with PPI.
[2019-09-06 15:39] LABS: Hematocrit 26.6 % (35.5-45.6); Hemoglobin 8.5 gm/dl (11.8-15.2)
[2019-09-06] MEDS: SODIUM CHLORIDE NASAL SPRAY 44ML NS SCH ×3 (16:19→21:30)
[2019-09-07 04:59] LABS: Basophils % (Auto) 0.7 % (0.0-1.8); Eosinophils % (Auto) 0.5 % (0.0-4.3); Hematocrit 27.9 % (35.5-45.6); Hemoglobin 8.8 gm/dl (11.8-15.2); Lymphocytes # (Auto) 1.9 K/mm3 (1.2-5.4); Lymphocytes % (Auto) 31.5 % (13.4-35.0); Mean Corpuscular HGB Conc 32 % (32-34); Mean Corpuscular Volume 70 fl (84-94); Monocytes # (Auto) 0.5 K/mm3 (0.0-0.8); Monocytes % (Auto) 8.9 % (0.0-7.3); Platelet Count 213 K/mm3 (140-440); Red Blood Count 3.96 M/mm3 (3.65-5.03); Red Cell Distribution Width 18.7 % (13.2-15.2)
[2019-09-07 05:23] LABS: BUN/Creatinine Ratio 6; Blood Urea Nitrogen 5 mg/dL (9-20); Calcium 8.6 mg/dL (8.4-10.2); Hemolysis Index 0
[2019-09-07] MEDS: SODIUM CHLORIDE 0.45% 1000 ML 1,000 ML IV SCH (06:01)
[2019-09-07] MEDS ORDERED: SODIUM CHLORIDE 0.9% 1000 ML 1,000 ML ONE (08:57)
[2019-09-07] MEDS ORDERED: LIDOCAINE MPF (2%) 20 MG/1 ML VIAL 5 ML ONE (09:00)
[2019-09-07] MEDS ORDERED: PROPOFOL 200 MG/20 ML VIAL IV ONE ×2 (09:51)
--- NOTE | 2019-09-07 10:05 | Operative Report ---
Operative Report Operative Report: Date: 09/07/2019 Pre procedure diagnosis: melena, GERD Post procedure diagnosis: gastritis, intact fundoplication wrap Procedure: Esophagogastroduodenoscopy with biopsies Endoscopist: Ashwin Mohamud MD Medications: Per anesthesia- see separate records for details Complications: none Estimated blood loss: None After careful discussion of the nature and purpose of the procedure, details of the technique, risks, benefits and alternatives, the patient gave consent. The patient was placed in the left lateral decubitus position and medicated by anesthesia- see separate records for details. The tip of the olympus video upper scope was passed per orum under direct view through the mouth and into the esophagus, stomach and duodenum. The scope was advanced to the second portion of the duodenum without difficulty. The second portion of the duodenum were normal. The bulb revealed normal findings. The scope was withdrawn back into the stomach and the stomach gently insufflated with air. The antrum revealed atrophic mucosa. Biopsies were obtained from the antrum and the gastric body. The scope was then retroflexed and partially withdrawn to inspect the proximal stomach. The cardia, fundus and body were normal appearing. There was intact appearing wrap seen on retroflexion view. The scope was then withdrawn in the forward view. The EG junction was at 40 cm from the incisors. The esophagus was normal. The procedure was well tolerated and the patient was observed in the GI recovery unit. IMPRESSION: 1. Intact appearing fundoplication wrap at GE junction consistent with his history of prior GERD surgery. 2. Atrophic gastritis. Biopsies obtained from the antrum and the body. 3. No blood noted in the stomach or examined part of the duodenum. 4. Normal esophagus exam. Plan: 1. Resume diet. 2. Continue with PPI. Switch to oral dose. 3. Follow up with outpatient GI for colonoscopy for anemia work up. 4. Avoid NSAIDs. 5. Will sign off. Ok for discharge per GI standpoint. Follow up with outpatient ENT and pulmonary as planned. Ashwin Mohamud MD (Jenny) [facility]
--- NOTE | 2019-09-07 11:09 | Discharge Summary ---
Providers - Providers Date of Admission: 09/06/19 02:15 Attending physician: JIN RICE MD 09/06/19 01:47 Consult to Physician [CONS] Routine Comment: Dr. Wadsworth spoke with Dr. Mohamud @ 0144 Consulting Provider: ANDREW MOHAMUD Physician Instructions: Reason For Exam: gi bleed Primary care physician: KRISSY AQUINO Hospitalization Condition: Critical Disposition: DC-01 TO HOME OR SELFCARE Time spent for discharge: 33 mins Core Measure Documentation - Palliative Care Palliative Care/ Comfort Measures: Not Applicable - Core Measures Any of the following diagnoses?: none Exam - Constitutional Vitals: Temp Pulse Resp BP Pulse Ox 97.7 F 70 18 118/80 95 09/07/19 10:05 09/07/19 10:35 09/07/19 10:35 09/07/19 10:35 09/07/19 10:35 General appearance: Present: no acute distress, well-nourished - EENT Eyes: Present: PERRL ENT: hearing intact, clear oral mucosa - Neck Neck: Present: supple, normal ROM - Respiratory Respiratory effort: normal Respiratory: bilateral: CTA - Cardiovascular Heart Sounds: Present: S1 & S2. Absent: rub, click - Extremities Extremities: pulses symmetrical, No edema Peripheral Pulses: within normal limits - Abdominal General gastrointestinal: Present: soft, non-tender, non-distended, normal bowel sounds Male genitourinary: Present: normal - Integumentary Integumentary: Present: clear, warm, dry - Musculoskeletal Musculoskeletal: gait normal, strength equal bilaterally - Psychiatric Psychiatric: appropriate mood/affect, intact judgment & insight - Neurologic Neurologic: CNII-XII intact, moves all extremities Plan [facility] [Referring] - 3-5 Days Prescriptions: Omeprazole 40 mg PO BID #60
[2019-09-07 12:47] VITALS: BP 124/81
[2019-09-07] MEDS: TAMSULOSIN 0.4 MG CAP PO SCH (13:36)
[2019-09-07] MEDS: amLODIPine 10 MG TAB PO SCH (13:36)
[2019-09-07] MEDS: ASCORBIC ACID 500 MG TAB PO SCH (13:37)
[2019-09-07] MEDS: FINASTERIDE 5 MG TAB PO SCH (13:37)
[2019-09-07] MEDS: SODIUM CHLORIDE NASAL SPRAY 44ML NS SCH ×2 (14:07→14:08)
--- NOTE | 2019-09-07 15:09 | Anesthesia Day of Surgery ---
Anesthesia Day of Surgery - Day of Surgery Patient Examined: Yes Patient H&P Reviewed: Yes Patient is NPO: Yes
[2019-09-07] MEDS ORDERED: PANTOPRAZOLE 40 MG TAB PO SCH (22:00)
--- NOTE | 2019-09-10 22:43 | Post Anesthesia Evaluation ---
- Post Anesthesia Evaluation Patient Participated: Yes Airway Patent: Yes Stable Respiratory Function: Yes Nausea/Vomiting: No Temp > 96.8F: Yes Pain Manageable: Yes Adequeate Hydration: Yes Anesthesia Complications: No Block Receding Appropriately: Not Applicable Patient on Ventilator: No
--- NOTE | 2019-09-10 22:43 | Anesthesia Consultation ---
Anesthesia Consult and Med Hx Date of service: 09/07/19 - Airway Anesthetic Teeth Evaluation: Poor, Chipped ROM Head & Neck: Adequate Mental/Hyoid Distance: Adequate Mallampati Class: Class II Intubation Access Assessment: Good - Pre-Operative Health Status ASA Pre-Surgery Classification: ASA2 Proposed Anesthetic Plan: MAC - Pulmonary Hx Smoking: Yes (Former) Hx Asthma: No COPD: Yes (controlled, no inhaler use ) Hx Pneumonia: No - Cardiovascular System Hx Hypertension: Yes - Central Nervous System CVA: No (Brain surgery; unsteady gait) Hx Psychiatric Problems: No - Gastrointestinal Hx Gastroesophageal Reflux Disease: Yes (severe. s/p Nii) - Endocrine Hx End Stage Renal Disease: No - Other Systems Hx Cancer: No
== END 2019-09-07 15:30 | disposition home or self-care (01) | DRG 378 ==
LOC: ED 21:34 → 4A 09-06 02:15 → 3A 09-06 12:03
PROVIDERS: ADMIT Internal Medicine; ATTEND Internal Medicine
PROC: 0DB68ZX Excision of Stomach, Via Natural or Artificial Opening Endoscopic, Diagnostic (ICD-10-PCS; principal; 2019-09-07)
PROC: 0DB78ZX Excision of Stomach, Pylorus, Via Natural or Artificial Opening Endoscopic, Diagnostic (ICD-10-PCS; 2019-09-07)
DX: K29.71 Gastritis, unspecified, with bleeding (principal); I31.3 Pericardial effusion (noninflammatory); D64.9 Anemia, unspecified; K21.9 Gastro-esophageal reflux disease without esophagitis; J44.9 Chronic obstructive pulmonary disease, unspecified; I10 Essential (primary) hypertension; Z82.49 Family history of ischemic heart disease and other diseases of the circulatory system; Z79.899 Other long term (current) drug therapy; Z87.891 Personal history of nicotine dependence
CPT/HCPCS: 36415; 71046; 71275; 80048; 80053; 83880; 85014; 85018; 85025; 85610; 85730; 86850; 86900; 86901; 88305; 88342; 93005; 93010; 93306; G0378; C9113; J2270; J2704; J7030; Q9967

== ENCOUNTER 2021-04-14 02:21 | Observation (INO) | payer MEDICAID ==
[2021-04-14] MEDS ORDERED: ASPIRIN 325 MG TAB PO ONE (02:40)
--- NOTE | 2021-04-14 02:48 | Emergency Department Report ---
ED Chest Pain HPI - General Chief Complaint: Chest Pain Stated Complaint: CHEST PAIN PUI?: No Time Seen by Provider: 04/14/21 02:43 Source: patient, RN notes reviewed, old records reviewed Mode of arrival: Ambulatory Limitations: No Limitations - History of Present Illness Initial Comments: Patient is a 60-year-old male who presents emergency room with complaints of chest pain. Patient states that the chest pain is on and off for the past 3 days. Patient states she is currently wearing a heart monitor. Patient states the heart monitor doctor called him and said he had a critical arrhythmia and to come directly to the emergency room. Patient states he was sleeping when this happened. Patient states that the phone call woke him up. Patient states he woke up with chest pain. Patient denies shortness of breath. Patient denies fever and chills. Patient states is not sure what the arrhythmia was. Patient denies recent travel. Patient denies recent international travel. Patient denies exposure to the novel coronavirus. Patient denies sick contacts. Patient denies fever and chills. Patient denies cough. Patient denies diarrhea. Patient denies coming in contact with anybody with symptoms of the novel coronavirus. Patient states he is already vaccinated for COVID-19. MD Complaint: chest pain -: Sudden Onset: during rest Pain Location: left chest Pain Radiation: none Severity scale (0 -10): 4 Quality: tightness, aching, heaviness Consistency: intermittent Improves With: rest Worsens With: exertion re: denies: nausea, vomting, diaphoresis, dyspnea, sense of impending doom Other Symptoms: denies: cough, fever, syncope, rash, acid taste in mouth, leg swelling, palpitations, burping Treatments Prior to Arrival: none Aspirin use within the Past 7 Days: (1) Yes - Related Data On Oral Contraceptives: No Home Medications Medication Instructions Recorded Confirmed Last Taken Tamsulosin [Flomax] 0.4 mg PO DAILY 03/26/15 09/06/19 01/04/16 Anagrelide HCl [Anagrelide] 1 mg PO BID 10/20/17 09/06/19 Unknown Ascorbic Acid [Vitamin C] 1,000 mg PO DAILY 10/20/17 09/06/19 Unknown Finasteride [Proscar] 5 mg PO DAILY 08/05/18 09/06/19 Unknown Previous Rx's Medication Instructions Recorded Last Taken Type amLODIPine 10 mg PO DAILY tablet 10/21/17 Unknown Rx Omeprazole 40 mg PO BID #60 09/07/19 Unknown Rx Allergies Allergy/AdvReac Type Severity Reaction Status Date / Time No Known Allergies Allergy Verified 03/26/15 09:45 Heart Score - HEART Score History: Slightly suspicious EKG: Normal Age: 45-65 Risk factors: No known risk factors Troponin: < normal limit HEART Score: 1 - EKG Read Time Time EKG Completed: 02:38 EKG Read Time: 02:39 ED Review of Systems ROS: Stated complaint: CHEST PAIN Other details as noted in HPI Constitutional: denies: chills, fever Eyes: denies: eye pain, eye discharge, vision change ENT: denies: ear pain, throat pain Respiratory: denies: cough, shortness of breath, wheezing Cardiovascular: as per HPI, chest pain. denies: palpitations Endocrine: no symptoms reported Gastrointestinal: denies: abdominal pain, nausea, diarrhea Genitourinary: denies: urgency, dysuria Musculoskeletal: denies: back pain, joint swelling, arthralgia Skin: denies: rash, lesions Neurological: denies: headache, weakness, paresthesias Psychiatric: denies: anxiety, depression Hematological/Lymphatic: denies: easy bleeding, easy bruising ED Past Medical Hx - Past Medical History Previous Medical History?: Yes Hx Hypertension: Yes Hx Congestive Heart Failure: No Hx Diabetes: No Hx GERD: Yes Hx Arthritis: Yes (HANDS AND ARM) Hx Psychiatric Treatment: Yes (Anxiety) Hx Asthma: No Hx COPD: Yes (controlled, no inhaler use ) Additional medical history: "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" - Surgical History Past Surgical History?: Yes Additional Surgical History: Finger surgery on right hand, Lung surgery for collapsed lung, Brain Surgery - Family History Family history: no significant - Social History Smoking Status: Former Smoker Substance Use Type: None - Medications Home Medications: Home Medications Medication Instructions Recorded Confirmed Last Taken Type Tamsulosin [Flomax] 0.4 mg PO DAILY 03/26/15 09/06/19 01/04/16 History Anagrelide HCl [Anagrelide] 1 mg PO BID 10/20/17 09/06/19 Unknown History Ascorbic Acid [Vitamin C] 1,000 mg PO DAILY 10/20/17 09/06/19 Unknown History amLODIPine 10 mg PO DAILY tablet 10/21/17 09/06/19 Unknown Rx Finasteride [Proscar] 5 mg PO DAILY 08/05/18 09/06/19 Unknown History Omeprazole 40 mg PO BID #60 09/07/19 Unknown Rx ED Physical Exam - General Limitations: No Limitations General appearance: alert, in no apparent distress - Head Head exam: Present: atraumatic, normocephalic - Eye Eye exam: Present: normal appearance - ENT ENT exam: Present: mucous membranes moist - Neck Neck exam: Present: normal inspection - Respiratory Respiratory exam: Present: normal lung sounds bilaterally. Absent: respiratory distress - Cardiovascular Cardiovascular Exam: Present: regular rate, normal rhythm. Absent: systolic murmur, diastolic murmur, rubs, gallop - GI/Abdominal GI/Abdominal exam: Present: soft, normal bowel sounds - Rectal Rectal exam: Present: deferred - Extremities Exam Extremities exam: Present: normal inspection - Back Exam Back exam: Present: normal inspection - Neurological Exam Neurological exam: Present: alert, oriented X3 - Psychiatric Psychiatric exam: Present: normal affect, normal mood - Skin Skin exam: Present: warm, dry, intact, normal color. Absent: rash ED Course Vital Signs 04/14/21 04/14/21 02:32 02:46 Temperature 97.8 F Pulse Rate 98 H 91 H Respiratory 18 15 Rate Blood Pressure 132/89 132/89 O2 Sat by Pulse 98 99 Oximetry - Reevaluation(s) Reevaluation #1: The nurse contacted the Holter monitor company and the product development technician faxed over the EKG and stated the patient had a run of V. tach. Patient noted to have sinus tachycardia with PACs and PVCs as well a heart rate of 226 when the run of V. tach to place. All this took place while the patient was sleeping. Patient's acid painter is Dr. Jabier Whitt 04/14/21 03:00 Reevaluation #2: I discussed all results with patient. I discussed plan of care with patient. Patient agrees with plan of care and admission. Patient to be admitted to the hospitalist service. 04/14/21 04:15 - Consultations Consultation #1: Hospitalist consulted for admission. Hospitalist to admit patient. 04/14/21 04:15 Consultation #2: Cardiology consulted. 04/14/21 04:18 SHERMAN score - Sherman Score Age > 65: (0) No Aspirin use within the Past 7 Days: (0) No 3 or more CAD Risk Factors: (0) No 2 or more Angina events in past 24 hrs: (0) No Known CAD with more than 50% Stenosis: (0) No Elevated Cardiac Markers: (0) No ST Deviation Greater than 0.5mm: (0) No SHERMAN Score: 0 ED Medical Decision Making - Lab Data Result diagrams: 04/14/21 02:58 04/14/21 02:58 - EKG Data -: EKG Interpreted by Me EKG shows normal: sinus rhythm, axis, intervals, QRS complexes, ST-T waves Rate: normal - Radiology Data Radiology results: report reviewed interpreted by me: Chest x-ray: No pneumonia, no pneumothorax, no foreign body, no osseous findings, cardiomegaly and CHF changes and pulmonary edema noted. XR chest 1V ap INDICATION / CLINICAL INFORMATION: chest pain. COMPARISON: 09/05/2019. FINDINGS: HEART /PULMONARY VASCULATURE: Cardiomegaly. Mild pulmonary vasculature congestion. LUNGS / PLEURA: No focal airspace consolidation. No pleural effusion. No pneumothorax. ADDITIONAL FINDINGS: No significant additional findings. IMPRESSION: Mild CHF/volume overload. - Medical Decision Making Patient is a 60-year-old male who presents emergency room with complaints of c hest pain and abnormal heart rhythm on his Holter. Patient is currently wearing a Holter monitor prescribed by his acid painter. Patient states that he has had chest pain off and on for few weeks and has been consistent over the last few days. Patient states he was sleeping at home and somebody called him because he had a abnormal heart rhythm and was told to come to the hospital. Patient brought contact information for the Holter monitor and they sent us a rhythm strip and it shows that the patient was sinus tachycardia With PACs, PVCs and had a run of ventricular tachycardia. Patient had labs done which were essentially unremarkable except for anemia. Patient had a chest x-ray which was negative for acute findings. Patient had a EKG done which revealed negative for acute pathology showed sinus rhythm and a normal ST. I personally reviewed EKG and chest x-ray. Patient admitted to the hospital service for further evaluation treatment and rule out ACS. Patient's acid painter was consulted. Critical care time documented due to the multiple reassessments, prolonged time at the bedside, interpretation of diagnostics and labs. - Differential Diagnosis Chest pain, arrhythmia, V. tach, ACS Critical Care Time: Yes Critical care time in (mins) excluding proc time.: 35 Critical care attestation.: If time is entered above; I have spent that time in minutes in the direct care of this critically ill patient, excluding procedure time. Critical Care Time: 35 minutes ED Disposition Clinical Impression: Cardiomegaly, Pulmonary edema cardiac cause, Ventricular tachycardia Anemia Qualifiers: Anemia type: unspecified type Qualified Code(s): D64.9 - Anemia, unspecified Chest pain Qualifiers: Chest pain type: unspecified Qualified Code(s): R07.9 - Chest pain, unspecified CHF (congestive heart failure) Qualifiers: Heart failure type: unspecified Heart failure chronicity: acute Qualified Code(s): I50.9 - Heart failure, unspecified Arrhythmia Qualifiers: Arrhythmia type: ventricular tachycardia Qualified Code(s): I47.2 - Ventricular tachycardia Disposition: OP ADMIT IP TO THIS HOSP Is pt being admited?: Yes Does the pt Need Aspirin: No Condition: Critical Instructions: Pulmonary Edema (ED) Time of Disposition: 04:14
[2021-04-14 03:20] LABS: Basophils # (Auto) 0.2 K/mm3 (0.0-0.1); Basophils % (Auto) 2.8 % (0.0-1.8); Eosinophils % (Auto) 0.2 % (0.0-4.3); Hematocrit 26.8 % (35.5-45.6); Hemoglobin 8.7 gm/dl (11.8-15.2); Lymphocytes % (Auto) 22.6 % (13.4-35.0); Mean Corpuscular HGB Conc 33 % (32-34); Monocytes # (Auto) 0.8 K/mm3 (0.0-0.8); Monocytes % (Auto) 9.7 % (0.0-7.3); Platelet Count 194 K/mm3 (140-440); Red Blood Count 3.87 M/mm3 (3.65-5.03); Red Cell Distribution Width 18.5 % (13.2-15.2)
[2021-04-14 03:21] LABS: Mean Corpuscular Volume 69 fl (84-94)
--- NOTE | 2021-04-14 03:38 | XRay Report ---
XR chest 1V ap INDICATION / CLINICAL INFORMATION: chest pain. COMPARISON: 09/05/2019. FINDINGS: HEART /PULMONARY VASCULATURE: Cardiomegaly. Mild pulmonary vasculature congestion. LUNGS / PLEURA: No focal airspace consolidation. No pleural effusion. No pneumothorax. ADDITIONAL FINDINGS: No significant additional findings. IMPRESSION: Mild CHF/volume overload. Signer Name: Zeus Junior MD Signed: 04/14/2021 3:34 AM Workstation Name: [id number]
[2021-04-14 03:42] LABS: Alanine Aminotransferase 7 units/L (7-56); Albumin 3.6 g/dL (3.9-5); BUN/Creatinine Ratio 17; Blood Urea Nitrogen 15 mg/dL (9-20); Calcium 8.6 mg/dL (8.4-10.2); Hemolysis Index 4
[2021-04-14] MEDS ORDERED: MORPHINE 4 MG/1 ML INJ IV PRN (05:25)
[2021-04-14] MEDS ORDERED: ACETAMINOPHEN 325 MG TAB PO PRN (05:25)
[2021-04-14] MEDS ORDERED: traMADol 50 MG TAB PO PRN (05:25)
--- NOTE | 2021-04-14 05:33 | History and Physical Report ---
History of Present Illness Date of examination: 04/14/21 Date of admission: 04/14/21 Chief complaint: Chest pain History of present illness: 60-year-old male who presents emergency room with complaints of chest pain. Patient states that the chest pain is on and off for the past 3 days. Patient states she is currently wearing a heart monitor. Patient states the heart monitor doctor called him and said he had a critical arrhythmia and to come directly to the emergency room. Patient states he was sleeping when this happened. Patient states that the phone call woke him up. Patient states he woke up with chest pain. Patient denies shortness of breath. Patient denies fever and chills. Patient states is not sure what the arrhythmia was. In the emergency room initial cardiac enzyme is negative. Troponin is 0.010 Past History Past Medical History: arthritis, COPD, GERD, hypertension Medications and Allergies Allergies Allergy/AdvReac Type Severity Reaction Status Date / Time No Known Allergies Allergy Verified 03/26/15 09:45 Home Medications Medication Instructions Recorded Confirmed Last Taken Type Tamsulosin [Flomax] 0.4 mg PO DAILY 03/26/15 09/06/19 01/04/16 History Anagrelide HCl [Anagrelide] 1 mg PO BID 10/20/17 09/06/19 Unknown History Ascorbic Acid [Vitamin C] 1,000 mg PO DAILY 10/20/17 09/06/19 Unknown History amLODIPine 10 mg PO DAILY tablet 10/21/17 09/06/19 Unknown Rx Finasteride [Proscar] 5 mg PO DAILY 08/05/18 09/06/19 Unknown History Omeprazole 40 mg PO BID #60 09/07/19 Unknown Rx Review of Systems Cardiovascular: chest pain Exam - Constitutional Vitals: Temp Pulse Resp BP Pulse Ox 97.8 F 75 16 122/77 97 04/14/21 02:32 04/14/21 05:00 04/14/21 05:00 04/14/21 05:00 04/14/21 05:00 General appearance: Present: no acute distress, well-nourished - EENT Eyes: Present: PERRL ENT: hearing intact, clear oral mucosa - Neck Neck: Present: supple, normal ROM - Respiratory Respiratory effort: normal Respiratory: bilateral: CTA - Cardiovascular Heart Sounds: Present: S1 & S2. Absent: rub, click - Extremities Extremities: pulses symmetrical, No edema Peripheral Pulses: within normal limits - Abdominal General gastrointestinal: Present: soft, non-tender, non-distended, normal bowel sounds Male genitourinary: Present: normal - Integumentary Integumentary: Present: clear, warm, dry - Musculoskeletal Musculoskeletal: gait normal, strength equal bilaterally - Psychiatric Psychiatric: appropriate mood/affect, intact judgment & insight - Neurologic Neurologic: CNII-XII intact, moves all extremities HEART Score - HEART Score EKG: Normal Age: 45-65 Risk factors: No known risk factors Troponin: Troponin T < 0.010 ng/mL (0.00-0.029) 04/14/21 02:58 Troponin: < normal limit Results - Labs CBC & Chem 7: 04/14/21 02:58 04/14/21 02:58 Labs: Laboratory Last Values WBC 8.7 K/mm3 (4.5-11.0) 04/14/21 02:58 RBC 3.87 M/mm3 (3.65-5.03) 04/14/21 02:58 Hgb 8.7 gm/dl (11.8-15.2) L 04/14/21 02:58 Hct 26.8 % (35.5-45.6) L 04/14/21 02:58 MCV 69 fl (84-94) L 04/14/21 02:58 MCH 22 pg (28-32) L 04/14/21 02:58 MCHC 33 % (32-34) 04/14/21 02:58 RDW 18.5 % (13.2-15.2) H 04/14/21 02:58 Plt Count 194 K/mm3 (140-440) 04/14/21 02:58 Lymph % (Auto) 22.6 % (13.4-35.0) 04/14/21 02:58 [place] % (Auto) 9.7 % (0.0-7.3) H 04/14/21 02:58 Eos % (Auto) 0.2 % (0.0-4.3) 04/14/21 02:58 Baso % (Auto) 2.8 % (0.0-1.8) H 04/14/21 02:58 Lymph # (Auto) 2.0 K/mm3 (1.2-5.4) 04/14/21 02:58 [place] # (Auto) 0.8 K/mm3 (0.0-0.8) 04/14/21 02:58 Eos # (Auto) 0.0 K/mm3 (0.0-0.4) 04/14/21 02:58 Baso # (Auto) 0.2 K/mm3 (0.0-0.1) H 04/14/21 02:58 Seg Neutrophils % 64.7 % (40.0-70.0) 04/14/21 02:58 Seg Neutrophils # 5.6 K/mm3 (1.8-7.7) 04/14/21 02:58 Sodium 142 mmol/L (137-145) 04/14/21 02:58 Potassium 3.8 mmol/L (3.6-5.0) 04/14/21 02:58 Chloride 108.4 mmol/L (98-107) H 04/14/21 02:58 Carbon Dioxide 23 mmol/L (22-30) 04/14/21 02:58 Anion Gap 14 mmol/L 04/14/21 02:58 BUN 15 mg/dL (9-20) 04/14/21 02:58 Creatinine 0.9 mg/dL (0.8-1.3) 04/14/21 02:58 Estimated GFR > 60 ml/min 04/14/21 02:58 BUN/Creatinine Ratio 17 % 04/14/21 02:58 Glucose 97 mg/dL (75-100) 04/14/21 02:58 Calcium 8.6 mg/dL (8.4-10.2) 04/14/21 02:58 Total Bilirubin 0.40 mg/dL (0.1-1.2) 04/14/21 02:58 AST 12 units/L (5-40) 04/14/21 02:58 ALT 7 units/L (7-56) 04/14/21 02:58 Alkaline Phosphatase 115 units/L (35-129) 04/14/21 02:58 Troponin T < 0.010 ng/mL (0.00-0.029) 04/14/21 02:58 Total Protein 8.4 g/dL (6.3-8.2) H 04/14/21 02:58 Albumin 3.6 g/dL (3.9-5) L 04/14/21 02:58 Albumin/Globulin Ratio 0.8 % 04/14/21 02:58 - Imaging and Cardiology Chest x-ray: report reviewed Assessment and Plan VTE prophylaxis?: Chemical Plan of care discussed with patient/family: Yes - Patient Problems (1) Acute coronary syndrome Current Visit: Yes Status: Acute Plan to address problem: Admit the patient to the medical floor telemetry. Aspirin 325 mg p.o. daily Lipitor 40 mg p.o. daily nitroglycerin as needed we will do the serial cardiac enzymes we also do echocardiogram and consult cardiology (2) Hypertension Current Visit: Yes Status: Acute Plan to address problem: Norflex 10 mg p.o. daily. Hydralazine 10 mg IV every 6 hours as needed. We will monitor the blood pressure closely (3) COPD (chronic obstructive pulmonary disease) Current Visit: Yes Status: Acute Plan to address problem: Oxygen via nasal cannula 3 L/min. Albuterol via nebulizer every 4 hours as needed. We will monitor the patient closely (4) Arrhythmia Current Visit: Yes Status: Acute Qualifiers: Arrhythmia type: ventricular tachycardia Qualified Code(s): I47.2 - Ventricular tachycardia Plan to address problem: Aspirin 325 mg p.o. daily Lipitor 40 mg p.o. daily nitroglycerin as needed we will do the serial cardiac enzymes we also do echocardiogram and consult cardiology (5) GERD (gastroesophageal reflux disease) Current Visit: No Status: Acute Plan to address problem: Omeprazole 40 mg p.o. twice daily we will continue the home medication (6) DVT prophylaxis Current Visit: Yes Status: Acute Plan to address problem: Heparin 5000 units subcu every 8 hours for DVT prophylaxis. Omeprazole 40 mg p.o. twice daily for GI prophylaxis. Patient is a full code
[2021-04-14 06:04] LABS: Basophils % (Auto) 0.5 % (0.0-1.8); Eosinophils % (Auto) 0.3 % (0.0-4.3); Hematocrit 26.5 % (35.5-45.6); Hemoglobin 8.4 gm/dl (11.8-15.2); Lymphocytes # (Auto) 2.3 K/mm3 (1.2-5.4); Lymphocytes % (Auto) 29.1 % (13.4-35.0); Mean Corpuscular HGB Conc 32 % (32-34); Monocytes # (Auto) 0.7 K/mm3 (0.0-0.8); Monocytes % (Auto) 8.9 % (0.0-7.3); Platelet Count 178 K/mm3 (140-440); Red Blood Count 3.82 M/mm3 (3.65-5.03); Red Cell Distribution Width 18.9 % (13.2-15.2)
[2021-04-14 06:12] LABS: Mean Corpuscular Volume 69 fl (84-94)
[2021-04-14 06:22] LABS: BUN/Creatinine Ratio 18; Blood Urea Nitrogen 14 mg/dL (9-20); Calcium 8.4 mg/dL (8.4-10.2); Hemolysis Index 2
[2021-04-14] MEDS: HEPARIN 5,000 UNIT/1 ML VIAL SUB-Q SCH ×3 (06:22→21:44)
[2021-04-14] MEDS ORDERED: amLODIPine 10 MG TAB PO SCH (10:00)
[2021-04-14] MEDS ORDERED: NON-FORMULARY EACH (Omeprazole [Omeprazole] 40 MG Capsule.Dr) PO SCH (10:00)
[2021-04-14] MEDS ORDERED: ANAGRELIDE HCL 1 MG PO SCH (10:00)
[2021-04-14] MEDS ORDERED: NON-FORMULARY EACH (Ascorbic Acid [Vitamin C] 1,000 MG Tablet) PO SCH (10:00)
[2021-04-14] MEDS ORDERED: ANAGRELIDE 0.5 MG CAP PO SCH (10:00)
--- NOTE | 2021-04-14 10:22 | Electrocardiograph Report ---
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
--- NOTE | 2021-04-14 10:26 | Electrocardiograph Report ---
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
[2021-04-14] MEDS: ASCORBIC ACID 500 MG TAB PO SCH (11:09)
[2021-04-14] MEDS: carvediloL 6.25 MG TAB PO SCH ×2 (11:10→21:43)
[2021-04-14] MEDS: FINASTERIDE 5 MG TAB PO SCH (11:10)
[2021-04-14] MEDS: TAMSULOSIN 0.4 MG CAP PO SCH (11:10)
[2021-04-14] MEDS: PANTOPRAZOLE 40 MG TAB PO SCH ×2 (11:10→21:43)
--- NOTE | 2021-04-14 11:24 | Consultation ---
<AMIGINETTE PAGE - Last Filed: 04/14/21 13:02> History of Present Illness Consult date: 04/14/21 Requesting physician: HAMLET CANTU III Consult reason: arrhythmia (13 beat nonsustaind VTach reported holter monitor) History of present illness: Patient is a 60 y/o male with a PMHx of HTN, small pericardial effusion(echo 2019), and sleep apnea who presented to ED with a complain of chest pain and SOB from last night. The patient is followed by Dr. Whitt in our practice and was last seen on 03/15/2021 and was put on a 30 day event monitor. The patient reports that he woke up last night around 1am feeling his heart racing, short of breath, and having a sharp chest pain. He states right after he woke up that he received a call from a Doctor regarding his event monitor and was told to go to the ED because of an arrhythmia (13 beats of VTach). Patient denies any diaphoresis, nausea, or vomiting associated with this episode. Echo 03/30/2021- EF 45 to 50%. Mildly dilated right atrium. Mildly dilated ascending aorta. No significant stenotic or regurgitant valvular abnormalities. Moderate circumferential pericardial effusion no evidence of tamponade Past History Past Medical History: arthritis, COPD, GERD, hypertension, other (Pericardial Effusion) Past Surgical History: Other (craniotoomy w/ excision of brain 2015 , and restriciont of esophaggogastric junction 2018) Social history: smoking (former smoker wuite in 2016. smoked 1ppd) Family history: hypertension Medications and Allergies Allergies Allergy/AdvReac Type Severity Reaction Status Date / Time No Known Allergies Allergy Verified 03/26/15 09:45 Home Medications Medication Instructions Recorded Confirmed Last Taken Type Tamsulosin [Flomax] 0.4 mg PO DAILY 03/26/15 09/06/19 01/04/16 History Anagrelide HCl [Anagrelide] 1 mg PO BID 10/20/17 09/06/19 Unknown History Ascorbic Acid [Vitamin C] 1,000 mg PO DAILY 10/20/17 09/06/19 Unknown History amLODIPine 10 mg PO DAILY tablet 10/21/17 09/06/19 Unknown Rx Finasteride [Proscar] 5 mg PO DAILY 08/05/18 09/06/19 Unknown History Omeprazole 40 mg PO BID #60 09/07/19 Unknown Rx Active Meds: Active Medications Acetaminophen (Acetaminophen 325 Mg Tab) 650 mg PO Q6H PRN PRN Reason: Pain, Mild (1-3) Amlodipine Besylate (Amlodipine 10 Mg Tab) 10 mg PO DAILY [facility] Last Admin: 04/14/21 11:10 Dose: 10 mg Documented by: Anagrelide HCl (Anagrelide 0.5 Mg Cap) 1 mg PO BID [facility] Ascorbic Acid (Ascorbic Acid 500 Mg Tab) 1,000 mg PO DAILY [facility] Last Admin: 04/14/21 11:09 Dose: 1,000 mg Documented by: Aspirin (Aspirin Ec 325 Mg Tab) 325 mg PO QDAY [facility] Atorvastatin Calcium (Atorvastatin 40 Mg Tab) 40 mg PO QHS [facility] Carvedilol (Carvedilol 6.25 Mg Tab) 6.25 mg PO BID [facility] Last Admin: 04/14/21 11:10 Dose: 6.25 mg Documented by: Finasteride (Finasteride 5 Mg Tab) 5 mg PO DAILY [facility] Last Admin: 04/14/21 11:10 Dose: 5 mg Documented by: Heparin Sodium (Porcine) (Heparin 5,000 Unit/1 Ml Vial) 5,000 unit SUB-Q Q8HR [facility] Last Admin: 04/14/21 06:22 Dose: 5,000 unit Documented by: Morphine Sulfate (Morphine 4 Mg/1 Ml Inj) 2 mg IV Q5MIN PRN PRN Reason: Chest Pain Pantoprazole Sodium (Pantoprazole 40 Mg Tab) 40 mg PO BID [facility] Last Admin: 04/14/21 11:10 Dose: 40 mg Documented by: Sodium Chloride (Sodium Chloride 0.9% 10 Ml Flush Syringe) 10 ml IV PRN PRN PRN Reason: LINE FLUSH Tamsulosin HCl (Tamsulosin 0.4 Mg Cap) 0.4 mg PO DAILY [facility] Last Admin: 04/14/21 11:10 Dose: 0.4 mg Documented by: Tramadol HCl (Tramadol 50 Mg Tab) 50 mg PO Q6H PRN PRN Reason: Pain, Moderate (4-6) Review of Systems All systems: negative Constitutional: poor appetite, no weight loss, no weight gain, no fever, no chills Ears, nose, mouth and throat: no ear pain, no ear discharge, no tinnitis Cardiovascular: chest pain, palpitations, rapid/irregular heart beat, syncope Respiratory: shortness of breath, sleep apnea, no cough, no cough with sputum, no excessive sputum Gastrointestinal: abdominal pain, nausea, no vomiting, no diarrhea, no constipation Genitourinary Male: no dysuria, no hematuria, no flank pain, no discharge Musculoskeletal: muscle weakness, no neck stiffness, no neck pain, no shooting arm pain Integumentary: no rash, no pruritis, no sores, no wounds Neurological: weakness, syncope, no transient paralysis, no paralysis, no parathesias, no numbness, no tingling Psychiatric: no anxiety Endocrine: no cold intolerance, no heat intolerance, no excessive sweating Hematologic/Lymphatic: no easy bruising, no easy bleeding Allergic/Immunologic: no wheezing Physical Examination Last Vital Signs Temp 98.9 F 04/14/21 08:05 Pulse 72 04/14/21 08:05 Resp 18 04/14/21 08:05 BP 138/86 04/14/21 08:05 Pulse Ox 96 04/14/21 08:05 General appearance: no acute distress HEENT: Positive: PERRL Neck: Positive: trachea midline Cardiac: Positive: Reg Rate and Rhythm, S1/S2, Systolic Murmur (2/6 lsb) Lungs: Positive: Normal Exam, Normal Breath Sounds Neuro: Positive: Grossly Intact Abdomen: Positive: Unremarkable, Soft, Active Bowel Sounds Skin: Negative: Rash, Suspicious Lesions Extremities: Present: normal, upper extr. pulses Results 04/14/21 05:39 04/14/21 05:39 Cardiac Enzymes 04/14/21 Range/Units 02:58 AST 12 (5-40) units/L CBC 04/14/21 04/14/21 Range/Units 02:58 05:39 WBC 8.7 7.9 (4.5-11.0) K/mm3 RBC 3.87 3.82 (3.65-5.03) M/mm3 Hgb 8.7 L 8.4 L (11.8-15.2) gm/dl Hct 26.8 L 26.5 L (35.5-45.6) % Plt Count 194 178 (140-440) K/mm3 Lymph # (Auto) 2.0 2.3 (1.2-5.4) K/mm3 [place] # (Auto) 0.8 0.7 (0.0-0.8) K/mm3 Eos # (Auto) 0.0 0.0 (0.0-0.4) K/mm3 Baso # (Auto) 0.2 H 0.0 (0.0-0.1) K/mm3 Comprehensive Metabolic Panel 04/14/21 04/14/21 Range/Units 02:58 05:39 Sodium 142 142 (137-145) mmol/L Potassium 3.8 3.7 (3.6-5.0) mmol/L Chloride 108.4 H 108.9 H (98-107) mmol/L Carbon Dioxide 23 23 (22-30) mmol/L BUN 15 14 (9-20) mg/dL Creatinine 0.9 0.8 (0.8-1.3) mg/dL Glucose 97 92 (75-100) mg/dL Calcium 8.6 8.4 (8.4-10.2) mg/dL AST 12 (5-40) units/L ALT 7 (7-56) units/L Alkaline Phosphatase 115 (35-129) units/L Total Protein 8.4 H (6.3-8.2) g/dL Albumin 3.6 L (3.9-5) g/dL - Imaging and Cardiology Echo: report reviewed EKG: report reviewed, image reviewed - EKG Interpretation EKG: sinus rhythm EKG interpretations - EKG Sinus rhythms and dysrhythmias: sinus rhythm Assessment and Plan Vtach * Patient had 13 beats of Vtach overnight on his 30 day event monitor * Initiate Coreg 6.25mg BID PO * Continue to monitor on telemetry Pericardial Effusion * Echo 03/30/2021- EF 45 to 50%. Mildly dilated right atrium. Mildly dilated ascending aorta. No significant stenotic or regurgitant valvular abnormalities. Moderate circumferential pericardial effusion no evidence of tamponade * Echo pending HTN * Optimize hypertensive regimen. Change amlodipine 10mg PO to Losartan 50mg PO QD Sleep Apnea * Patient has a history of Sleep apnea * Ordered CPAP Qhs DVT Prophylaxis * Patient on Heparin SQ Patient seen in conjuction with Dr. Simon who agrees with plan. Will continue to follow - Patient Problems (1) Anemia Current Visit: Yes Status: Acute Qualifiers: Anemia type: unspecified type Qualified Code(s): D64.9 - Anemia, unspecified (2) Chest pain Current Visit: Yes Status: Acute Qualifiers: Chest pain type: unspecified Qualified Code(s): R07.9 - Chest pain, unspecified (3) DVT prophylaxis Current Visit: Yes Status: Acute (4) Hypertension Current Visit: Yes Status: Chronic (5) Ventricular tachycardia Current Visit: Yes Status: Acute (6) GERD (gastroesophageal reflux disease) Current Visit: No Status: Chronic (7) SOB (shortness of breath) Current Visit: Yes Status: Acute <CAROL PURCELL - Last Filed: 04/14/21 15:18> Medications and Allergies Active Meds: Active Medications Acetaminophen (Acetaminophen 325 Mg Tab) 650 mg PO Q6H PRN PRN Reason: Pain, Mild (1-3) Anagrelide HCl (Anagrelide 0.5 Mg Cap) 1 mg PO BID [facility] Last Admin: 04/14/21 11:26 Dose: Not Given Documented by: Ascorbic Acid (Ascorbic Acid 500 Mg Tab) 1,000 mg PO DAILY [facility] Last Admin: 04/14/21 11:09 Dose: 1,000 mg Documented by: Aspirin (Aspirin Ec 325 Mg Tab) 325 mg PO QDAY [facility] Atorvastatin Calcium (Atorvastatin 40 Mg Tab) 40 mg PO QHS [facility] Carvedilol (Carvedilol 6.25 Mg Tab) 6.25 mg PO BID [facility] Last Admin: 04/14/21 11:10 Dose: 6.25 mg Documented by: Finasteride (Finasteride 5 Mg Tab) 5 mg PO DAILY [facility] Last Admin: 04/14/21 11:10 Dose: 5 mg Documented by: Heparin Sodium (Porcine) (Heparin 5,000 Unit/1 Ml Vial) 5,000 unit SUB-Q Q8HR [facility] Last Admin: 04/14/21 06:22 Dose: 5,000 unit Documented by: Losartan Potassium (Losartan 50 Mg Tab) 50 mg PO QDAY [facility] Morphine Sulfate (Morphine 4 Mg/1 Ml Inj) 2 mg IV Q5MIN PRN PRN Reason: Chest Pain Pantoprazole Sodium (Pantoprazole 40 Mg Tab) 40 mg PO BID [facility] Last Admin: 04/14/21 11:10 Dose: 40 mg Documented by: Sodium Chloride (Sodium Chloride 0.9% 10 Ml Flush Syringe) 10 ml IV PRN PRN PRN Reason: LINE FLUSH Tamsulosin HCl (Tamsulosin 0.4 Mg Cap) 0.4 mg PO DAILY [facility] Last Admin: 04/14/21 11:10 Dose: 0.4 mg Documented by: Tramadol HCl (Tramadol 50 Mg Tab) 50 mg PO Q6H PRN PRN Reason: Pain, Moderate (4-6) Physical Examination Vital Signs Temp Pulse Resp BP Pulse Ox 97.8 F 98 H 18 132/89 98 04/14/21 02:32 04/14/21 02:32 04/14/21 02:32 04/14/21 02:32 04/14/21 02:32 Results 04/14/21 05:39 04/14/21 05:39 Cardiac Enzymes 04/14/21 Range/Units 02:58 AST 12 (5-40) units/L CBC 04/14/21 04/14/21 Range/Units 02:58 05:39 WBC 8.7 7.9 (4.5-11.0) K/mm3 RBC 3.87 3.82 (3.65-5.03) M/mm3 Hgb 8.7 L 8.4 L (11.8-15.2) gm/dl Hct 26.8 L 26.5 L (35.5-45.6) % Plt Count 194 178 (140-440) K/mm3 Lymph # (Auto) 2.0 2.3 (1.2-5.4) K/mm3 [place] # (Auto) 0.8 0.7 (0.0-0.8) K/mm3 Eos # (Auto) 0.0 0.0 (0.0-0.4) K/mm3 Baso # (Auto) 0.2 H 0.0 (0.0-0.1) K/mm3 Comprehensive Metabolic Panel 04/14/21 04/14/21 Range/Units 02:58 05:39 Sodium 142 142 (137-145) mmol/L Potassium 3.8 3.7 (3.6-5.0) mmol/L Chloride 108.4 H 108.9 H (98-107) mmol/L Carbon Dioxide 23 23 (22-30) mmol/L BUN 15 14 (9-20) mg/dL Creatinine 0.9 0.8 (0.8-1.3) mg/dL Glucose 97 92 (75-100) mg/dL Calcium 8.6 8.4 (8.4-10.2) mg/dL AST 12 (5-40) units/L ALT 7 (7-56) units/L Alkaline Phosphatase 115 (35-129) units/L Total Protein 8.4 H (6.3-8.2) g/dL Albumin 3.6 L (3.9-5) g/dL Assessment and Plan Patient currently in guarded cardiac status. We will continue to monitor on telemetry. Echo from 03/30/2021 shows moderate pericardial effusion. Repeat echo is pending read. At this time, We will plan for ischemic eval prior to discharge.
[2021-04-14] MEDS: LOSARTAN 50 MG TAB PO SCH (15:49)
[2021-04-15] MEDS: HEPARIN 5,000 UNIT/1 ML VIAL SUB-Q SCH ×2 (05:37→15:04)
[2021-04-15 09:12] LABS: Iron 83 ug/dL (49-181); Total Iron Binding Capacity 223 mcg/dL (250-450)
[2021-04-15 09:44] VITALS: BP 122/79
[2021-04-15] MEDS ORDERED: ASPIRIN EC 325 MG TAB PO SCH (10:00)
[2021-04-15] MEDS: carvediloL 6.25 MG TAB PO SCH (11:14)
[2021-04-15] MEDS: LOSARTAN 50 MG TAB PO SCH (11:14)
[2021-04-15] MEDS: FINASTERIDE 5 MG TAB PO SCH (11:15)
[2021-04-15] MEDS: PANTOPRAZOLE 40 MG TAB PO SCH (11:15)
[2021-04-15] MEDS: TAMSULOSIN 0.4 MG CAP PO SCH (11:15)
[2021-04-15] MEDS: ASCORBIC ACID 500 MG TAB PO SCH (11:16)
--- NOTE | 2021-04-15 13:26 | Discharge Summary ---
Providers - Providers Date of Admission: 04/14/21 04:18 Date of discharge: 04/15/21 Attending physician: EFREN HAHN MD 04/14/21 Consult to Cardiac Rehabilitation [CONS] Routine Reason For Exam: Phase I 04/14/21 04:28 Consult to Physician [CONS] Routine Comment: Consulting Provider: AMELIA VALADEZ Physician Instructions: Reason For Exam: Arrhythmia, ventricular tach Primary care physician: HAMLET ARGUELLES Hospitalization Condition: Good Hospital course: 60-year-old -[place] male who presented with ventricular tachycardia on remote telemetry in his home. Changes to [facility] for evaluation, cardiology was consulted, patient started on blood pressure medication and beta-jasson. No signs of any arrhythmias. Patient stable for discharge, follow-up with cardiology in the outpatient setting. (1) Acute coronary syndrome Current Visit: Yes Status: Acute Plan to address problem: Admit the patient to the medical floor telemetry. Aspirin 325 mg p.o. daily Lipitor 40 mg p.o. Cardiology consulted Carvedilol, losartan started Telemetry reviewed, no arrhythmias, patient stable for discharge (2) Hypertension Current Visit: Yes Status: Acute Plan to address problem: Norflex 10 mg p.o. daily. Hydralazine 10 mg IV every 6 hours as needed. Losartan prescribed by cardiology (3) COPD (chronic obstructive pulmonary disease) Current Visit: Yes Status: Acute Plan to address problem: No exacerbation (4) Arrhythmia Current Visit: Yes Status: Acute Qualifiers: Arrhythmia type: ventricular tachycardia Qualified Code(s): I47.2 - Ventricular tachycardia Plan to address problem: Continue carvedilol and losartan (5) GERD (gastroesophageal reflux disease) Current Visit: No Status: Acute Plan to address problem: Omeprazole 40 mg p.o. twice daily we will continue the home medication Disposition: DC-01 TO HOME OR SELFCARE Final Discharge Diagnosis (Prints w/discharge instructions): Nonsustained ventricular tachycardia. Hypertension. COPD without exacerbation. GERD. Chronic thrombocytopenia Time spent for discharge: 35 minutes Core Measure Documentation - Palliative Care Palliative Care/ Comfort Measures: Not Applicable - Core Measures Any of the following diagnoses?: none Exam - Physical Exam Narrative exam: General appearance: no acute distress, well-nourished EENT: PERRL, EOM intact, hearing intact, clear oral mucosa Neck: Present: supple, normal ROM Respiratory: bilateral CTA, negative: rales, rhonchi, wheezing Cardiovascular: Regular rate/rhythm, Normal S1 & S2. No gallop, rub Extremities: no ischemia, No edema, normal temperature, normal color, Full ROM Abdominal: soft, no tenderness, non-distended, normal bowel sounds Integumentary: Present: clear, warm, dry no wounds, no erythema noted Psychiatric: appropriate mood/affect, intact judgment & insight Neurologic: CNII-XII intact, moves all extremities, no sensory or motor abnormalities - Constitutional Vitals: Temp Pulse Resp BP Pulse Ox 98.2 F 62 18 122/79 95 04/15/21 09:43 04/15/21 09:43 04/15/21 09:43 04/15/21 09:43 04/15/21 09:43 Plan Activity: no restrictions Weight Bearing Status: Weight Bear as Tolerated Diet: low salt Follow up with: PRIMARY CARE, [Referring] - 3-5 Days HEIDY RAY MD [Staff Physician] - 7 Days (Please call to make an appointment with the order dispatcher chief who saw you in the hospital or follow-up with your own order dispatcher chief. Please take your medications as prescribed.) Prescriptions: carvediloL [Coreg] 6.25 mg PO BID #180 tablet Losartan [Cozaar] 50 mg PO QDAY #90 tablet
--- NOTE | 2021-04-15 13:51 | Progress Note ---
Assessment and Plan Vtach * Patient had 13 beats of Vtach overnight on his 30 day event monitor * Continue Coreg to 6.25mg BID PO Pericardial Effusion * Echo 03/30/2021- EF 45 to 50%. Mildly dilated right atrium. Mildly dilated ascending aorta. No significant stenotic or regurgitant valvular abnormalities. Moderate circumferential pericardial effusion no evidence of tamponade * Echo 04/14/2021- EF 45 to 50%. Left ventricle is borderline, dilated right ventricle is grossly normal in size with normal systolic function. Left and right atrium are mildly dilated no pericardial effusion and no pleural effusion HTN * Optimize hypertensive regimen. Change amlodipine 10mg PO to Losartan 50mg PO QD DVT Prophylaxis * Patient on Heparin SQ Patient stable from a and ok to discharge from a cardiac standpoint. Patient should follow up with Dr. Whitt ,[facility] [employer] on 05/10/2021 at 10:30am. Phone number [phone]. Patient seen in conjunction with Dr. Gupta who agrees with plan. - Patient Problems (1) Anemia Current Visit: Yes Status: Acute Qualifiers: Anemia type: unspecified type Qualified Code(s): D64.9 - Anemia, unspecified (2) Chest pain Current Visit: Yes Status: Acute Qualifiers: Chest pain type: unspecified Qualified Code(s): R07.9 - Chest pain, unspecified (3) DVT prophylaxis Current Visit: Yes Status: Acute (4) Hypertension Current Visit: Yes Status: Chronic (5) Ventricular tachycardia Current Visit: Yes Status: Acute (6) GERD (gastroesophageal reflux disease) Current Visit: No Status: Chronic (7) SOB (shortness of breath) Current Visit: Yes Status: Acute Subjective Date of service: 04/15/21 Principal diagnosis: arrhythmia (13 beat nonsustaind VTach reported holter monitor) Interval history: Patient resting in bed comfortably with no complaints Patient was sinus 59 on tele Objective Last Vital Signs Temp 98.2 F 04/15/21 09:43 Pulse 62 04/15/21 09:43 Resp 18 04/15/21 09:43 BP 122/79 04/15/21 09:43 Pulse Ox 95 04/15/21 09:43 - Physical Examination HEENT: Positive: PERRL Neck: Positive: trachea midline Cardiac: Positive: Regular Rhythm, Bradycardia Lungs: Positive: Normal Breath Sounds Neuro: Positive: Grossly Intact Abdomen: Positive: Unremarkable, Soft, Active Bowel Sounds Skin: Negative: Rash, Suspicious Lesions Extremities: Present: normal, upper extr. pulses - Imaging and Cardiology EKG: report reviewed, image reviewed Echo: report reviewed - Telemetry EKG Rhythm: Sinus Bradycardia - EKG Sinus rhythms and dysrhythmias: sinus rhythm
== END 2021-04-15 18:00 | disposition home or self-care (01) ==
LOC: ED 02:21 → 4A 04:18
PROVIDERS: ADMIT Hospitalist; ATTEND Family Medicine
DX: I24.9 Acute ischemic heart disease, unspecified (principal); I11.0 Hypertensive heart disease with heart failure; I50.9 Heart failure, unspecified; J44.9 Chronic obstructive pulmonary disease, unspecified; K21.9 Gastro-esophageal reflux disease without esophagitis; I47.2 Ventricular tachycardia; I49.9 Cardiac arrhythmia, unspecified; M19.90 Unspecified osteoarthritis, unspecified site; J81.1 Chronic pulmonary edema; D64.9 Anemia, unspecified; F41.9 Anxiety disorder, unspecified; Z79.899 Other long term (current) drug therapy; Z98.890 Other specified postprocedural states; Z87.891 Personal history of nicotine dependence; Z79.82 Long term (current) use of aspirin
CPT/HCPCS: 36415; 71045; 80053; 82728; 83550; 84484; 85025; 93005; 93306; 94660; 96372; 99291; A9270; G0378; J1644; 80048

== ENCOUNTER 2021-08-27 13:54 | Emergency (ER) | payer MEDICAID ==
[2021-08-27 14:07] VITALS: BP 125/80
--- NOTE | 2021-08-27 14:34 | Emergency Department Report ---
- General Chief complaint: Skin Rash Stated complaint: HEAD PAIN, RASH Time Seen by Provider: 08/27/21 14:23 Source: patient Mode of arrival: Ambulatory Limitations: No Limitations - History of Present Illness Initial comments: 61 year old male with past medical hx of HTN presents to ED with complaints of rash. Patient dates that the rash started about a week ago. He noticed it after getting a haircut earlier that day. States that it was pruritic in nature but has since been more of a burning painful rash. States that is mainly on the right side of his occipital scalp, right posterior neck and down into his right shoulder. He states that the pain is shooting into his head and causing him to have a headache. He denies any fever or chills. Other than [facility] he denies any other new contacts such as soaps, shampoos, or any other new contacts including meds. He denies similar rash in the past. MD complaint: rash -: week(s) (1) - Related Data Home Medications Medication Instructions Recorded Confirmed Last Taken Tamsulosin [Flomax] 0.4 mg PO DAILY 03/26/15 04/15/21 04/14/21 Anagrelide HCl [Anagrelide] 1 mg PO BID 10/20/17 04/15/21 04/14/21 Ascorbic Acid [Vitamin C] 1,000 mg PO DAILY 10/20/17 04/15/21 04/14/21 Previous Rx's Medication Instructions Recorded Last Taken Type Omeprazole 40 mg PO BID #60 09/07/19 04/14/21 Rx Losartan [Cozaar] 50 mg PO QDAY #90 tablet 04/15/21 Unknown Rx carvediloL [Coreg] 6.25 mg PO BID #180 tablet 04/15/21 Unknown Rx Acetaminophen/Codeine [Tylenol 1 tab PO Q6H PRN #12 tab 08/27/21 Unknown Rx /Codeine # 3 tab] Acyclovir [Zovirax Tab] 800 mg PO 5XD 7 Days tablet 08/27/21 Unknown Rx Triamcinolone 0.1% [Kenalog 0.1% 1 applic TP TID #1 tube 08/27/21 Unknown Rx CREAM] Allergies Allergy/AdvReac Type Severity Reaction Status Date / Time No Known Allergies Allergy Verified 06/27/15 09:45 Abscess Boil HPI - HPI Chief Complaint: Skin Rash Stated Complaint: HEAD PAIN, RASH Time Seen by Provider: 08/27/21 14:23 Home Medications: Home Medications Medication Instructions Recorded Confirmed Last Taken Tamsulosin [Flomax] 0.4 mg PO DAILY 03/26/15 04/15/21 04/14/21 Anagrelide HCl [Anagrelide] 1 mg PO BID 10/20/17 04/15/21 04/14/21 Ascorbic Acid [Vitamin C] 1,000 mg PO DAILY 10/20/17 04/15/21 04/14/21 Previous Rx's Medication Instructions Recorded Last Taken Type Omeprazole 40 mg PO BID #60 09/07/19 04/14/21 Rx Losartan [Cozaar] 50 mg PO QDAY #90 tablet 04/15/21 Unknown Rx carvediloL [Coreg] 6.25 mg PO BID #180 tablet 04/15/21 Unknown Rx Acetaminophen/Codeine [Tylenol 1 tab PO Q6H PRN #12 tab 08/27/21 Unknown Rx /Codeine # 3 tab] Acyclovir [Zovirax Tab] 800 mg PO 5XD 7 Days tablet 08/27/21 Unknown Rx Triamcinolone 0.1% [Kenalog 0.1% 1 applic TP TID #1 tube 08/27/21 Unknown Rx CREAM] Allergies/Adverse Reactions: Allergies Allergy/AdvReac Type Severity Reaction Status Date / Time No Known Allergies Allergy Verified 03/26/15 09:45 ED Review of Systems ROS: Stated complaint: HEAD PAIN, RASH Other details as noted in HPI Comment: All other systems reviewed and negative Constitutional: denies: chills, fever Eyes: denies: eye pain, eye discharge, vision change ENT: denies: ear pain, throat pain, dental pain, hearing loss, epistaxis, congestion Respiratory: denies: cough, shortness of breath, SOB with exertion, SOB at rest, wheezing Gastrointestinal: denies: abdominal pain, nausea, diarrhea, constipation, hematemesis Genitourinary: denies: urgency, dysuria Musculoskeletal: denies: back pain, joint swelling, arthralgia Skin: rash Neurological: headache. 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" - Surgical History Additional Surgical History: Finger surgery on right hand, Lung surgery for collapsed lung, Brain Surgery - Social History Smoking Status: Former Smoker Substance Use Type: None - Medications Home Medications: Home Medications Medication Instructions Recorded Confirmed Last Taken Type Tamsulosin [Flomax] 0.4 mg PO DAILY 03/26/15 04/15/21 04/14/21 History Anagrelide HCl [Anagrelide] 1 mg PO BID 10/20/17 04/15/21 04/14/21 History Ascorbic Acid [Vitamin C] 1,000 mg PO DAILY 10/20/17 04/15/21 04/14/21 History Omeprazole 40 mg PO BID #60 09/07/19 04/15/21 04/14/21 Rx Losartan [Cozaar] 50 mg PO QDAY #90 tablet 04/15/21 Unknown Rx carvediloL [Coreg] 6.25 mg PO BID #180 tablet 04/15/21 Unknown Rx Acetaminophen/Codeine [Tylenol 1 tab PO Q6H PRN #12 tab 08/27/21 Unknown Rx /Codeine # 3 tab] Acyclovir [Zovirax Tab] 800 mg PO 5XD 7 Days tablet 08/27/21 Unknown Rx Triamcinolone 0.1% [Kenalog 0.1% 1 applic TP TID #1 tube 08/27/21 Unknown Rx CREAM] ED Physical Exam - General Limitations: No Limitations General appearance: alert, in no apparent distress - Head Head exam: Present: atraumatic, normocephalic, normal inspection - Eye Eye exam: Present: normal appearance, PERRL, EOMI Pupils: Present: normal accommodation - Neck Neck exam: Present: normal inspection, full ROM, other (Erythematous, maculopapular, vesicular rash noted to the right posterior neck, extending down into right shoulder and right upper anterior chest following a C4-C5 dermatomal pattern.). Absent: meningismus - Respiratory Respiratory exam: Present: normal lung sounds bilaterally - Cardiovascular Cardiovascular Exam: Present: regular rate, normal rhythm, normal heart sounds - Neurological Exam Neurological exam: Present: alert, oriented X3, CN II-XII intact, normal gait - Psychiatric Psychiatric exam: Present: normal affect, normal mood - Skin Skin exam: Present: rash ED Course Vital Signs 08/27/21 14:05 Temperature 98.1 F Pulse Rate 87 Respiratory 16 Rate Blood Pressure 125/80 O2 Sat by Pulse 98 Oximetry ED Medical Decision Making - Medical Decision Making Patient rash concern for shingles to right posterior neck, right shoulder and right upper chest. There is no apparent secondary bacterial infection. He has no meningeal signs on exam. He is not toxic, is not ill-appearing and is not in any significant distress. He is awake alert and oriented x3. He is neurologically intact with a normal gait. His vital signs are stable. Discussed suspected diagnosis and treatment plan with patient. Patient expressed understanding of all instructions and agree with plan. Patient stable at time of discharge. Critical care attestation.: If time is entered above; I have spent that time in minutes in the direct care of this critically ill patient, excluding procedure time. ED Disposition Clinical Impression: Shingles Disposition: HOME / SELF CARE / HOMELESS Is pt being admited?: No Does the pt Need Aspirin: No Condition: Stable Instructions: Shingles, [id number] Additional Instructions: Recommend a take the acyclovir as prescribed, use the triamcinolone cream over the rash as prescribed, and take the Tylenol threes as prescribed to help with any pain. Keep the area clean with just soap and water, do not use peroxide or alcohol. Follow-up closely with your PCP this week. Return to the ER if any symptoms changes or worsens in any way. Prescriptions: Triamcinolone 0.1% [Kenalog 0.1% CREAM] 1 applic TP TID #1 tube Acetaminophen/Codeine [Tylenol /Codeine # 3 tab] 1 tab PO Q6H PRN #12 tab PRN Reason: Pain , Severe (7-10) Acyclovir [Zovirax Tab] 800 mg PO 5XD 7 Days tablet Referrals: PRIMARY CARE, [Primary Care Provider] - 3-5 Days Time of Disposition: 14:38
== END 2021-08-27 15:16 | disposition home or self-care (01) ==
LOC: ED 13:54
DX: B02.9 Zoster without complications (principal); I10 Essential (primary) hypertension; Z87.891 Personal history of nicotine dependence
CPT/HCPCS: 99282